=== PATIENT | female | born 1945 | race Caucasian/White ===

== ENCOUNTER 2020-12-05 17:37 | Emergency (ER) | payer BC, SELFPAY ==
--- NOTE | ~2020-12-05 | XR_ITS ---
EXAMINATION: XR ABDOMEN KUB CLINICAL INDICATION: Bloating. COMPARISON: None TECHNIQUE: AP view of the abdomen. FINDINGS: Nonspecific nondistended bowel loops are present. No evidence of any abnormal soft tissue mass or calcification. Visualized lung bases are clear. Atherosclerotic disease is present within the aorta and is branches. XR/XR KUB IMPRESSION: Nonspecific nondistended bowel loops are noted.
[2020-12-05 19:51] VITALS: BP 132/96; PULSE 90; RESP 16; TEMP 36.7; O2SAT 97; BMI 24.9
[2020-12-05 20:18] LABS: MANUAL DIFF FLAG NO
[2020-12-05 20:30] LABS: Basophils Absolute Auto 0.1 X10*3/uL (0.0-0.2); Basophils Percent Auto 0.5 % (0-2); Eosinophils Absolute Auto 0.2 X10*3/uL (0.0-0.4); Eosinophils Percent Auto 2.2 % (0-4); Hematocrit 38.3 % (37-47); Hemoglobin 12.8 g/dl (12.0-16.0); Imm Gran Abs Auto 0.03 X10*3/uL (0.00-0.03); Imm Gran Pct Auto 0.3 % (0.0-0.4); Lymphocytes Absolute Auto 2.9 X10*3/uL (1.2-4.9); Lymphocytes Percent Auto 31.3 % (20-40); Mean Corpuscular HGB Conc 33.4 g/dl (31.0-35.0); Mean Corpuscular Hemoglobin 29.6 pg (27.0-33.0); Mean Corpuscular Volume 88.7 fL (80-98); Mean Platelet Volume 10.5 fL (9.4-12.3); Monocytes Absolute Auto 0.8 X10*3/uL (0.1-1.2); Neutrophils Absolute Auto 5.2 X10*3/uL (2.0-8.3); Neutrophils Percent Auto 56.7 % (45-73); Platelet Count 273 X10*3/uL (160-400); Red Blood Count 4.32 X10*6/uL (4.20-5.50); Red Cell Distribution Width 12.5 % (11.0-16.0); White Blood Count 9.2 X10*3/uL (4.8-10.8)
[2020-12-05 20:40] LABS: Anion Gap 17 (12-20); Blood Urea Nitrogen 11 mg/dL (9-16); Carbon Dioxide 24 mmol/L (22-29); Chloride 100 mmol/L (96-108); Creatinine Clr Calc Pharmacy 51.9; Estimated Glomerular Filt Rate > 60; Glucose Random 102 mg/dL (60-115); Potassium 4.1 mmol/L (3.3-5.1); Sodium 137 mmol/L (135-145)
--- NOTE | 2020-12-05 22:28 | ED.NAVMDI ---
HPI - Nausea/Vomiting/Diarrhea General Chief complaint: Nausea/Vomiting/Diarrhea Stated complaint: not feeling good Source: patient Mode of arrival: ambulatory Limitations: no limitations History of Present Illness HPI Narrative: 75-year-old female with past medical history of hypertension, IBS with constipation presents with constipation and bloating for the past 2 weeks, and has had some nausea, fatigue, with pressure and pain in her lower back. She does feel like she has urinary tract infection, states that she has been able to pass gas and small amounts of stool. She has been taking omeprazole but has not been taking anything [id number] for the constipation. 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 MD elicited complaint: abdominal pain Onset (ago): week(s) (2) Associated nausea: No Associated abdominal pain: No Location of pain: diffuse Pain consistency: constant Severity: moderate Quality: cramping and aching Exacerbating factors: movement Relieving factors: none Associated symptoms: myalgias, malaise, nausea/vomiting and fatigue Related Data Previous Rx's Medication Instructions Recorded cefuroxime axetil 500 mg tablet 500 mg PO Q12H 7 Days #14 tab 12/06/20 magnesium citrate (Citrate of 296 ml PO ONCE #296 ml 12/06/20 Magnesia) Allergies Allergy/AdvReac Type Severity Reaction Status Date / Time acetaminophen [From PERCOCET] Allergy Intermediate RASH Verified 12/05/20 19:57 oxycodone [From PERCOCET] Allergy Intermediate RASH Verified 12/05/20 19:57 Review of Systems Review of Systems: Constitutional: Positive fatigue, No Fever, No Chills ENT/Mouth: No Ear Pain, No Hoarseness, No sore throat Eyes: No Eye Pain, No Swelling, No Redness, No Foreign Body Cardiovascular: No Chest Pain, No SOB Respiratory: No Cough, No Dyspnea Gastrointestinal: Positive constipation, No Nausea, No Vomiting, No Diarrhea, No abdominal Pain Genitourinary: No Dysuria, No Hematuria Musculoskeletal: positive lower back pain, No Myalgias, No Joint Swelling Skin: No Skin lacerations, No rash Neuro: No Weakness, No Numbness, No Paresthesias, No Loss of Consciousness, No Dizziness, No Headache Psych: No Anxiety/Panic, No Depression Heme/Lymph: no easy bruising, no Lymphadenopathy Endocrine: No Polyuria, No Polydipsia Yes all other systems are reviewed and are negative Gastrointestinal: Gastrointestinal: Denies nausea PMFSH Past Medical History Attestation statement: The following information was validated with the patient. Source: old records reviewed Medical History (Updated 12/06/20 @ 00:01 by Maya Givens NP) IBS (irritable bowel syndrome) Social History Social History Advance Directives: No Physical Exam Vital Signs: Vital Signs: Last Vital Signs Temp 98.7 F 12/05/20 23:35 Pulse 74 12/05/20 23:35 Resp 16 12/05/20 23:35 BP 141/73 H 12/05/20 23:35 Pulse Ox 98 12/05/20 23:35 Body Mass Index 24.9 Appearance: Alert. Oriented X3. No acute distress. Eyes: Pupils equal, round and reactive to light. ENT: Pharynx normal. Neck: Normal inspection. Neck supple. CVS: Normal heart rate and rhythm. Pulses normal. Respiratory: No respiratory distress. Breath sounds normal. Abdomen: Soft and nontender. No CVA or suprapubic tenderness noted. Skin: Skin warm and dry. Normal skin color. Normal skin turgor. Extremities: No lower extremity edema. Moves all extremities against resistance. Gait well balanced well coordinated. Neuro: No motor deficit. No sensory deficit. Cranial nerves 2-12 intact. Course Course Course Narrative: 75-year-old female presents with symptoms of constipation with lower back pain. Will order CBC, Chem 7, and urinalysis. KUB. Patient's abdominal exam is negative. KUB negative, urinalysis positive for UTI. Labs are unremarkable. 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 Will refer to Gastroenterology for history of IBS with constipation. Patient verbalized understanding of and agrees plan of care discharge home. MDM - Nausea/Vomiting/Diarrhea MDM Narrative Medical decision making narrative: IBS, constipation, UTI, obstruction Medical Records Attestation: I reviewed the patient's medical records. Lab Data Attestation: I reviewed the patient's lab results. Result diagrams: 12/05/20 20:13 12/05/20 20:13 Labs: Lab Results 12/05/20 12/05/20 12/05/20 Range/Units 20:13 20:13 23:45 WBC 9.2 (4.8-10.8) X10*3/uL RBC 4.32 (4.20-5.50) X10*6/uL Hgb 12.8 (12.0-16.0) g/dl Hct 38.3 (37-47) % MCV 88.7 (80-98) fL MCH 29.6 (27.0-33.0) pg MCHC 33.4 (31.0-35.0) g/dl RDW 12.5 (11.0-16.0) % Plt Count 273 (160-400) X10*3/uL MPV 10.5 (9.4-12.3) fL Immature Gran % (Auto) 0.3 (0.0-0.4) % Neut % (Auto) 56.7 (45-73) % Lymph % (Auto) 31.3 (20-40) % [place] % (Auto) 9.0 (2-11) % Eos % (Auto) 2.2 (0-4) % Baso % (Auto) 0.5 (0-2) % Lymph # (Auto) 2.9 (1.2-4.9) X10*3/uL [place] # (Auto) 0.8 (0.1-1.2) X10*3/uL Eos # (Auto) 0.2 (0.0-0.4) X10*3/uL Baso # (Auto) 0.1 (0.0-0.2) X10*3/uL Abs Immat Gran (auto) 0.03 (0.00-0.03) X10*3/uL Absolute Neuts (auto) 5.2 (2.0-8.3) X10*3/uL Absolute Nucleated RBC 0.000 (0.0-0.012) X10*3/uL Nucleated RBC % (auto) 0.0 (0.0-0.2) /100WBC Sodium 137 (135-145) mmol/L Potassium 4.1 (3.3-5.1) mmol/L Chloride 100 (96-108) mmol/L Carbon Dioxide 24 (22-29) mmol/L Anion Gap 17 (12-20) BUN 11 (9-16) mg/dL Creatinine 0.86 (0.5-1.4) mg/dL Estim Creat Clear Calc 51.9 Estimated GFR > 60 Random Glucose 102 (60-115) mg/dL Calcium 10.0 (8.4-10.2) mg/dL Urine Color STRAW Urine Appearance HAZY Urine pH 6.0 (5.0-8.0) Ur Specific Sarah 1.010 (1.005-1.025) Urine Protein NEG (NEG-TRACE) MG/DL Urine Glucose (UA) NEG (NEG) MG/DL Urine Ketones NEG (NEG) MG/DL Urine Blood TRACE (NEG) Urine Nitrite POS H (NEG) Ur Leukocyte Esterase 2+ H (NEG) Urine RBC 0 (0) /HPF Urine WBC 15-29 H (0-4) /HPF Ur Squamous Epith Cells 2+ /LPF Urine Bacteria 3+ /LPF Imaging Data KUB: Attestation: I personally reviewed and interpreted this imaging study as follows: Radiologist's impression: EXAMINATION: XR ABDOMEN KUB CLINICAL INDICATION: Bloating.? COMPARISON: None? TECHNIQUE: AP view of the abdomen. FINDINGS: Nonspecific nondistended bowel loops are present. No evidence of any abnormal soft tissue mass or calcification. Visualized lung bases are clear. Atherosclerotic disease is present within the aorta and is branches. XR/XR KUB IMPRESSION: Nonspecific nondistended bowel loops are noted. Discharge Plan Discharge Clinical Impression: Acute UTI Constipation Qualifiers: Constipation type: unspecified constipation type Qualified Code(s): K59.00 - Constipation, unspecified Patient Disposition: Home, Self-Care Instructions: Constipation (ED), Urinary Tract Infection in Women (ED) Additional Instructions: You were evaluated for constipation and pressure in your lower back. Your urinalysis is positive for UTI. Please take cefuroxime twice a day for the next 7 days. Drink plenty of fluids. KUB of the abdomen was normal, does show some moderate fecal load. Please purchase some magnesium citrate [id number] and drink the entire bottle. Please follow-up with Gastroenterology for IBS with constipation. I made a referral for you. Please call and request an appointment. Thank you for choosing this emergency department for evaluation. Please follow-up with primary care physician as needed. Return to the emergency department for any new, concerning, or worsening symptoms. Prescriptions: New cefuroxime axetil 500 mg tablet 500 mg PO Q12H 7 Days Qty: 14 RF: 0 magnesium citrate [Citrate of Magnesia] Solution 296 ml PO ONCE Qty: 296 RF: 0 Referrals: Lien Arnold MD [Physician] - 2 days (IBS with constipation) Interventions: ED Discharge Assessment Last Done: 12/06/20 00:34 Discharge Date/Time: 12/06/20 00:35
[2020-12-05 22:52] VITALS: BP 150/70; PULSE 69; RESP 16; O2SAT 98
[2020-12-05 23:35] VITALS: BP 141/73; PULSE 74; RESP 16; TEMP 37.1; O2SAT 98
[2020-12-05 23:51] LABS: Glucose Urine UA NEG (NEG); Leukocyte Esterase Urine 2+ (NEG); Nitrite Urine POS (NEG); Urine Blood TRACE (NEG); Urine Ketones NEG (NEG); Urine Protein NEG (NEG-TRACE)
[2020-12-05 23:52] LABS: Appearance Urine HAZY; Color Urine STRAW
[2020-12-06 00:12] LABS: Bacteria Urine 3+ /LPF; RBC Urine 0 /HPF (0); Squamous Epithelial Cell Urine 2+ /LPF
[2020-12-06] MEDS: Phenazopyridine HCL 200 MG TABLET PO (00:22)
== END 2020-12-06 00:35 | disposition home or self-care (01) ==
PROVIDERS: Emergency Provider Emergency Medicine; PCP Internal Medicine
DX: K59.00 Constipation, unspecified (principal); N39.0 Urinary tract infection, site not specified; I10 Essential (primary) hypertension
CPT/HCPCS: 36415; 74018; 80048; 81001; 85025; 87086; 87088; 87186; 99283; 99284

== ENCOUNTER 2020-12-16 10:14 | Outpatient (REF) | payer BC, SELFPAY ==
[2020-12-16 11:44] LABS: Glucose Urine UA NEG (NEG); Leukocyte Esterase Urine 1+ (NEG); Nitrite Urine NEG (NEG); Specific Gravity - Urine <= 1.005 (1.005-1.025); Urine Blood NEG (NEG); Urine Ketones NEG (NEG); Urine Protein NEG (NEG-TRACE)
[2020-12-16 11:54] LABS: Appearance Urine CLEAR; Color Urine STRAW
[2020-12-16 12:01] LABS: Bacteria Urine 4+ /LPF; RBC Urine 0-2 /HPF (0); Squamous Epithelial Cell Urine TRACE /LPF
== END 2020-12-16 10:15 | disposition home or self-care (01) ==
LOC: HO.LNP 10:14
PROVIDERS: Visit Provider Internal Medicine
DX: N30.00 Acute cystitis without hematuria (principal)
CPT/HCPCS: 81001; 87086; 87088; 87186

== ENCOUNTER 2021-01-02 10:47 | Outpatient (REF) | payer BC, SELFPAY ==
[2021-01-02 11:08] LABS: Glucose Urine UA NEG (NEG); Leukocyte Esterase Urine 2+ (NEG); Nitrite Urine NEG (NEG); Specific Gravity - Urine <= 1.005 (1.005-1.025); Urine Blood TRACE (NEG); Urine Ketones NEG (NEG); Urine Protein NEG (NEG-TRACE)
[2021-01-02 11:12] LABS: Appearance Urine HAZY; Color Urine YELLOW
[2021-01-02 11:16] LABS: Bacteria Urine 1+ /LPF; Squamous Epithelial Cell Urine 2+ /LPF; WBC Clumps Urine NOTED
== END 2021-01-02 10:48 | disposition home or self-care (01) ==
LOC: HO.LNP 10:47
PROVIDERS: Visit Provider Internal Medicine
DX: N30.00 Acute cystitis without hematuria (principal)
CPT/HCPCS: 81001; 81003; 87086; 87088; 87186

== ENCOUNTER 2021-02-19 10:56 | Outpatient (REF) | payer BC, SELFPAY ==
[2021-02-19 10:58] LABS: MANUAL DIFF FLAG NO
[2021-02-19 11:42] LABS: Basophils Absolute Auto 0.1 X10*3/uL (0.0-0.2); Basophils Percent Auto 0.6 % (0-2); Eosinophils Absolute Auto 0.2 X10*3/uL (0.0-0.4); Eosinophils Percent Auto 1.9 % (0-4); Hematocrit 39.6 % (37-47); Hemoglobin 12.7 g/dl (12.0-16.0); Imm Gran Abs Auto 0.03 X10*3/uL (0.00-0.03); Imm Gran Pct Auto 0.4 % (0.0-0.4); Lymphocytes Absolute Auto 2.7 X10*3/uL (1.2-4.9); Lymphocytes Percent Auto 32.8 % (20-40); Mean Corpuscular HGB Conc 32.1 g/dl (31.0-35.0); Mean Corpuscular Hemoglobin 29.2 pg (27.0-33.0); Mean Platelet Volume 11.6 fL (9.4-12.3); Monocytes Absolute Auto 0.8 X10*3/uL (0.1-1.2); Neutrophils Absolute Auto 4.5 X10*3/uL (2.0-8.3); Neutrophils Percent Auto 54.3 % (45-73); Platelet Count 253 X10*3/uL (160-400); Red Blood Count 4.35 X10*6/uL (4.20-5.50); Red Cell Distribution Width 13.1 % (11.0-16.0); White Blood Count 8.3 X10*3/uL (4.8-10.8)
[2021-02-19 11:53] LABS: Appearance Urine HAZY; Color Urine YELLOW; Glucose Urine UA NEG (NEG); Leukocyte Esterase Urine TRACE (NEG); Nitrite Urine POS (NEG); Urine Blood NEG (NEG); Urine Ketones NEG (NEG); Urine Protein NEG (NEG-TRACE)
[2021-02-19 12:06] LABS: Bacteria Urine 3+ /LPF; RBC Urine 0 /HPF (0); Squamous Epithelial Cell Urine 2+ /LPF
[2021-02-19 12:07] LABS: Mucus Urine 1+ /LPF
[2021-02-19 12:12] LABS: Alanine Aminotransferase 15 U/L (0-31); Albumin Level 4.9 g/dL (3.5-5.0); Alkaline Phosphatase 94 U/L (39-117); Anion Gap 14 (12-20); Aspartate Amino Transferase 21 U/L (5-31); Bilirubin Total 0.5 mg/dL (0.0-1.0); Blood Urea Nitrogen 15 mg/dL (9-16); Calcium 10.5 mg/dL (8.4-10.2); Carbon Dioxide 28 mmol/L (22-29); Chloride 104 mmol/L (96-108); Cholesterol 250 mg/dL; Estimated Glomerular Filt Rate 56; Glucose Fasting 104 mg/dL (60-99); HDL Cholesterol 57 mg/dL; LDL Cholesterol Calculated 144 mg/dl; Potassium 4.3 mmol/L (3.3-5.1); Sodium 142 mmol/L (135-145); Total Protein 7.7 g/dL (6.5-8.0); Triglycerides 248 mg/dL
[2021-02-19 12:17] LABS: Reflex LDLD? No
== END 2021-02-19 10:57 | disposition home or self-care (01) ==
LOC: HO.LNP 10:56
PROVIDERS: PCP Internal Medicine; Visit Provider Internal Medicine
DX: I10 Essential (primary) hypertension (principal); E78.00 Pure hypercholesterolemia, unspecified
CPT/HCPCS: 80053; 80061; 81001; 81003; 85025

== ENCOUNTER 2021-02-24 15:29 | Outpatient (REF) | payer BC, SELFPAY ==
[2021-02-24 15:41] LABS: Calcium 9.7 mg/dL (8.4-10.2)
== END 2021-02-24 15:30 | disposition home or self-care (01) ==
LOC: HO.LNP 15:29
PROVIDERS: Visit Provider Internal Medicine
DX: E83.52 Hypercalcemia (principal)
CPT/HCPCS: 82310

== ENCOUNTER 2021-04-14 09:37 | Day surgery (SDC) | payer BC, SELFPAY ==
--- NOTE | 2021-04-13 09:27 | P.CONAN_ITS ---
Documented by User: Ludmila Sahu NP 04/13/21 09:31 HPI - Anesthesia Eval Consult details Narrative: 76yo F for Colonoscopy [facility] Past Medical History Medical History GERD (gastroesophageal reflux disease) HLD (hyperlipidemia) HTN (hypertension) IBS (irritable bowel syndrome) Surgical History Surgical History (Updated 04/14/21 @ 11:07 by Ofelia Muniz MD) H/O cataract removal with insertion of prosthetic lens H/O colonoscopy History of hysterectomy Hx of right knee surgery Status post breast reduction Social History Social History Patient Tobacco Use Status: Never used Tobacco Use of substances other than those prescribed or required for medical reasons: No Are you DNR?: No Advance Directives: No Advance Directives Information Provided: Yes Meds Allergies Allergy/AdvReac Type Severity Reaction Status Date / Time acetaminophen [From PERCOCET] Allergy Intermediate RASH Verified 12/05/20 19:57 oxycodone [From PERCOCET] Allergy Intermediate RASH Verified 12/05/20 19:57 Exam Exam Date and Time: April 13, 2021 09 Pertinent Lab Results Pertinent Lab Results: Laboratory Tests 02/19/21 02/19/21 07:25 07:25 WBC 8.3 Hgb 12.7 Hct 39.6 Plt Count 253 Sodium 142 Potassium 4.3 Chloride 104 Carbon Dioxide 28 BUN 15 Creatinine 0.96 Assessment and Plan Assessment Anesthesia Assessment: Chart Reviewed Documented by User: Ofelia Muniz MD 04/14/21 11:09 [facility] Past Medical History Medical History GERD (gastroesophageal reflux disease) HLD (hyperlipidemia) HTN (hypertension) IBS (irritable bowel syndrome) Family History Family history of problems with anesthesia: No Surgical History Surgical History (Updated 04/14/21 @ 11:07 by Ofelia Muniz MD) H/O cataract removal with insertion of prosthetic lens H/O colonoscopy History of hysterectomy Hx of right knee surgery Status post breast reduction History of Problems with Anesthesia: No Social History Social History Patient Tobacco Use Status: Never used Tobacco Use of substances other than those prescribed or required for medical reasons: No Are you DNR?: No Advance Directives: No Advance Directives Information Provided: Yes Meds Allergies Allergy/AdvReac Type Severity Reaction Status Date / Time acetaminophen [From PERCOCET] Allergy Intermediate RASH Verified 12/05/20 19:57 oxycodone [From PERCOCET] Allergy Intermediate RASH Verified 12/05/20 19:57 Exam Height,Weight and Vital Signs: Height 5 ft 3 in Weight 68.039 kg Vital Signs Temp Pulse Resp BP Pulse Ox 04/14/21 10:32 98.8 F 92 18 145/74 H 97 Airway Mallampati Class: II TM Dist: >3cm Neck ROM: Full Loose/Missing/Broken Teeth: No Heart: RRR Lungs: CTAB Assessment and Plan Assessment Anesthesia Assessment: Anesthesia Plan Discussed Final Anesthetic Review Family History of Problems with Anesthesia: No History of Problems with Anesthesia: No NPO: Yes ASA Class: II Final Preanesthetic Review: No Changes in Pt Med Stat, Meds/Allgs Chart Reviewed, Consent Obtained/Reviewed and Anes Risks/Benef Reviewed Patient Risk: Low Procedure Risk: Low Assessment/Block/Sedation in SS: Assess/Block/Sedation-SS Anesthetic Plan Anesthetic Plan: MAC: Disposition: Standard PACU
[2021-04-14 10:13] VITALS: BMI 26.5
[2021-04-14 10:32] VITALS: BP 145/74; PULSE 92; RESP 18; TEMP 37.1; O2SAT 97
[2021-04-14] MEDS: Lactated Ringers 1,000 ML 100 ML IVCONT (10:47)
--- NOTE | 2021-04-14 11:31 | MHC.SHP ---
Pre-Procedural Eval Section A Date of Service: 04/14/21 The patient is an INPATIENT: No Changes since office visit: No Cold of Flu in the past 2 weeks, No New Medical Problems, No Changes in Medication and No Patient answered all questions The History & Physical has been completed within 30 days and I have reviewed it.: Yes Section B Chief Complaint: screening Allergies: Allergies Allergy/AdvReac Type Severity Reaction Status Date / Time acetaminophen [From PERCOCET] Allergy Intermediate RASH Verified 12/05/20 19:57 oxycodone [From PERCOCET] Allergy Intermediate RASH Verified 12/05/20 19:57 Plan I have reviewed the history and physical and performed a pertinent physical examination on my patient. No changes have occurred unless specified.
--- NOTE | 2021-04-14 12:16 | PM.OP ---
Brief Operative Note Date of Service: 04/14/21 Pre-op diagnosis: screening Post-op diagnosis: same (colon polyp) Procedure: colonoscopy Surgeon: Chapin Sloan Anesthesia: MAC Was an Industrial Cafeteria Manager used for this Procedure?: No Estimated blood loss (mL): 2 Pathology: other (polyp ceum) Condition: stable Disposition: PACU
[2021-04-14 12:17] VITALS: BP 85/50; PULSE 70; RESP 16; TEMP 36.4; O2SAT 97
[2021-04-14 12:32] VITALS: BP 117/63; PULSE 70; RESP 16; TEMP 36.4; O2SAT 100
--- NOTE | 2021-04-14 12:46 | OP_ITS ---
SURGEON: Chapin Sloan MD INDICATIONS: Colon cancer screening. PREOPERATIVE DIAGNOSIS: POSTOPERATIVE DIAGNOSIS: PROCEDURE PERFORMED: Colonoscopy to the terminal ileum with biopsy. ESTIMATED BLOOD LOSS: COMPLICATIONS: ANESTHESIA: ASSISTANTS: SPECIMENS: MEDICATIONS: Monitored anesthesia care. DESCRIPTION OF PROCEDURE: History and physical performed. The risks and benefits of the procedure were explained to the patient. Informed consent was obtained. The patient was placed in the left lateral decubitus position. A digital rectal exam was performed and showed decreased sphincter tone. The Olympus pediatric video colonoscope was introduced into the rectum and advanced to the cecum without difficulty. The cecum was identified by transillumination, palpation, and identification of the ileocecal valve. Examination was performed and the scope was removed. She tolerated the procedure well and was taken to recovery area in stable condition. FINDINGS: The terminal ileum was normal. The visualized colonic mucosa was normal. There was some liquid stool coating the mucosa limiting the examination in the cecum and sigmoid. This was washed and suctioned. In the cecum, was a less than 5 mm polyp, which was removed with biopsy forceps. No other polyps were identified. There was moderate sigmoid diverticulosis with scattered diverticula throughout the remainder of the colon. Retroflexed examination was normal. IMPRESSION: Colon polyp. RECOMMENDATION: Follow up the biopsy results. MD ANDREI Lawrence/ALETA / [id number]
== END 2021-04-14 13:20 | disposition home or self-care (01) ==
PROVIDERS: PCP Internal Medicine; Visit Provider Internal Medicine Gastroenterology
PROC: 0DJD8ZZ Inspection of Lower Intestinal Tract, Via Natural or Artificial Opening Endoscopic (ICD-10-PCS; CPT 45378; principal; 2021-04-14 10:30)
DX: Z12.11 Encounter for screening for malignant neoplasm of colon (principal); K63.5 Polyp of colon; K57.30 Diverticulosis of large intestine without perforation or abscess without bleeding; K21.9 Gastro-esophageal reflux disease without esophagitis; K58.1 Irritable bowel syndrome with constipation; I10 Essential (primary) hypertension; E78.00 Pure hypercholesterolemia, unspecified; Z79.899 Other long term (current) drug therapy; Z88.8 Allergy status to other drugs, medicaments and biological substances
CPT/HCPCS: 45380; 88305

== ENCOUNTER 2021-09-03 11:14 | Outpatient (REF) | payer BC, SELFPAY ==
[2021-09-03 11:46] LABS: Alanine Aminotransferase 17 U/L (0-31); Albumin Level 4.6 g/dL (3.5-5.0); Alkaline Phosphatase 111 U/L (39-117); Aspartate Amino Transferase 21 U/L (5-31); Bilirubin Direct 0.2 mg/dL (0.0-0.5); Bilirubin Total 0.6 mg/dL (0.0-1.0); Cholesterol 233 mg/dL; HDL Cholesterol 55 mg/dL; LDL Cholesterol Calculated 144 mg/dl; Total Protein 7.7 g/dL (6.5-8.0); Triglycerides 172 mg/dL
[2021-09-03 13:59] LABS: Reflex LDLD? No
== END 2021-09-03 11:15 | disposition home or self-care (01) ==
LOC: HO.LNP 11:14
PROVIDERS: PCP Internal Medicine; Visit Provider Internal Medicine
DX: E78.00 Pure hypercholesterolemia, unspecified (principal)
CPT/HCPCS: 80061; 80076

== ENCOUNTER 2022-09-02 11:59 | Emergency (ER) | payer MEDICARE, OTHER, SELFPAY ==
--- NOTE | ~2022-09-02 | XR_ITS ---
EXAMINATION: XR CHEST CLINICAL INFORMATION: Chest pain and palpitations COMPARISON: None available. TECHNIQUE: Frontal view of the chest was obtained. FINDINGS: Lungs clear. Heart and pulmonary vessels are normal. Bony structures intact. XR/XR chest 1V IMPRESSION: No active disease.
--- NOTE | 2022-09-02 12:02 | ECG_ITS ---
Test Reason : CP/DIZZY Blood Pressure : / mmHG Vent. Rate : 081 BPM Atrial Rate : 081 BPM P-R Int : 170 ms QRS Dur : 078 ms QT Int : 354 ms P-R-T Axes : 058 000 053 degrees QTc Int : 411 ms Normal sinus rhythm Cannot rule out Anterior infarct , age undetermined Abnormal ECG No previous ECGs available Referred By: Generic ED Physician Electronically Signed By:SHONA FORBES MD
--- NOTE | 2022-09-02 12:03 | ED.GENADULT ---
HPI - General Adult General Chief complaint: Chest Pain <JARRETT Mejia Last Filed: 09/02/22 12:15> Stated complaint: heart issues <JARRETT Mejia - Last Filed: 09/02/22 12:15> Time Seen by Provider: 09/02/22 17:31 <JARRETT Mejia - Last Filed: 09/02/22 12:15> Source: patient <DO Fely Choi Last Filed: 09/02/22 17:40> Mode of arrival: ambulatory <DO Fely Choi Last Filed: 09/02/22 17:40> Limitations: no limitations <DO Fely Choi Last Filed: 09/02/22 17:40> History of Present Illness HPI narrative: 69-year-old female presents emergency department after feeling off for the past few days. She states that she went to visit somebody at a long-term it is very hot in the room she felt lightheaded had to sit down for 15 minutes before she was not get out. She also admits to losing 20 lb since having COVID in May. She denies any chest pain but has had a palpitation few days ago she denies ever having heart attack or stroke she does take medications for blood pressure and cholesterol. She denies any falls or injuries denies nausea vomiting or diarrhea. <Juliano Brody DO - Last Filed: 09/02/22 17:40> Onset (ago): week(s) <DO Fely Choi Last Filed: 09/02/22 17:40> Related Data Home medications: Home Medications Medication Instructions Recorded Confirmed albuterol sulfate 2.5 mg/3 mL 2.5 mg inhalation Q4-6H PRN 04/14/21 04/14/21 (0.083 %) solution for nebulization Shortness Of Breath amlodipine 10 mg tablet 10 mg PO DAILY 04/14/21 04/14/21 aspirin 81 mg tablet 81 mg PO DAILY 04/14/21 04/14/21 atorvastatin 40 mg tablet 40 mg PO DAILY 04/14/21 04/14/21 benazepril 40 mg tablet 40 mg PO DAILY 04/14/21 04/14/21 hydrochlorothiazide 25 mg tablet 25 mg PO DAILY 04/14/21 04/14/21 omeprazole 40 mg capsule,delayed 40 mg PO DAILY 04/14/21 04/14/21 release <JARRETT Mejia - Last Filed: 09/02/22 12:15> Allergies/adverse reactions: Allergies Allergy/AdvReac Type Severity Reaction Status Date / Time oxycodone [From PERCOCET] Allergy Intermediate RASH Verified 09/02/22 12:13 <JARRETT Mejia - Last Filed: 09/02/22 12:15> Review of Systems Review of Systems: Review of systems: General: Patient denies any fever chills recent illness or falls Musculoskeletal: Denies back pain or body aches or other injuries HEENT: denies headache, runny nose, ear pain Respiratory: denies shortness of breath, cough Cardiovascular: no chest pain or palpitations : denies dysuria, frequency Abdomen: no nausea vomiting denies abdominal pain Extremities: no swelling, no pain Skin: no diaphoresis <Juliano Brody DO - Last Filed: 09/02/22 17:40> Yes all other systems are reviewed and are negative <Juliano Brody DO - Last Filed: 09/02/22 17:40> [facility] Past Medical History Medical History: Medical History (Updated 09/02/22 @ 17:40 by Juliano Brody DO) GERD (gastroesophageal reflux disease) HLD (hyperlipidemia) HTN (hypertension) IBS (irritable bowel syndrome) <JARRETT Mejia - Last Filed: 09/02/22 12:15> Surgical History: Surgical History (Updated 04/14/21 @ 11:07 by Ofelia Muniz MD) H/O cataract removal with insertion of prosthetic lens H/O colonoscopy History of hysterectomy Hx of right knee surgery Status post breast reduction <JARRETT Mejia - Last Filed: 09/02/22 12:15> Social History Social History: Social History Patient Tobacco Use Status: Never used Tobacco Advance Directives: No <JARRETT Mejia Last Filed: 09/02/22 12:15> Physical Exam ED Vital Signs: Vital Signs - 24 hr 09/02/22 12:13 Temperature 98.2 F Pulse Rate 86 Respiratory Rate 16 Blood Pressure 148/61 H Pulse Oximetry 99 Oxygen Delivery Method Room Air BMI result Body Mass Index 24.8 <JARRETT Mejia Last Filed: 09/02/22 12:15> Vital Signs - 24 hr 09/02/22 12:13 Temperature 98.2 F Pulse Rate 86 Respiratory Rate 16 Blood Pressure 148/61 H Pulse Oximetry 99 Oxygen Delivery Method Room Air BMI result Body Mass Index 24.8 <DO Fely Choi Last Filed: 09/02/22 17:40> General: Well-appearing well-nourished in no signs of distress HEENT: Normocephalic atraumatic Neck: No signs of JVD, no masses no tenderness or lymphadenopathy Cardiovascular: Regular rate and rhythm Respiratory: Clear to auscultation bilaterally Abdomen: Soft nontender no masses Extremities: Normal pedal pulses no signs of edema Skin: Dry warm no rashes Back: No tenderness full ROM <DO Fely Choi Last Filed: 09/02/22 17:40> Course Course Course Narrative: 77 year old female with PMH of HTN, hyperlipidemia and CVD presents to the ED with CP, multiple near-syncopal episodes, SOB and palpitations since Tuesday. Patient reports symptoms are resolved currently. Patient denies radiation, no history of clots. No recent travel. Patient is on aspirin daily, no other blood thinners. Patient appears anxious. PE: Benign Plan: Basic labs, EKG, <JARRETT Mejia Last Filed: 09/02/22 12:15> Medical Decision Making Medical Decision Making MDM Narrative: Patient with near-syncope few days ago since then has felt off she also admits to decreased appetite. Patient was seen in triage and labs sent which are all normal I do not think the patient needs an admission she is alert oriented and was reassured went over the lab results. <DO Fely Choi Last Filed: 09/02/22 17:40> Differential Diagnosis Differential Diagnoses: The differential diagnosis associated with the presentation includes <DO Fely Choi Last Filed: 09/02/22 17:40> Weakness dehydration electrolyte abnormality hypokalemia hypomagnesemia <DO Fely Choi Last Filed: 09/02/22 17:40> Lab Data Result Diagrams: 09/02/22 12:11 09/02/22 12:11 <JARRETT Mejia - Last Filed: 09/02/22 12:15> Labs: Lab Results 09/02/22 09/02/22 09/02/22 Range/Units 12:11 12:11 12:11 WBC 8.1 (4.8-10.8) X10*3/uL RBC 4.39 (4.20-5.50) X10*6/uL Hgb 12.5 (12.0-16.0) g/dl Hct 38.4 (37.0-47.0) % MCV 87.5 (80.0-98.0) fL MCH 28.5 (27.0-33.0) pg MCHC 32.6 (31.0-35.0) g/dl RDW 14.0 (11.0-16.0) % Plt Count 239 (160-400) X10*3/uL MPV 11.1 (9.4-12.3) fL Immature Gran % (Auto) 0.4 (0.0-0.4) % Neut % (Auto) 61.5 (45-73) % Lymph % (Auto) 24.6 (20-40) % [place] % (Auto) 9.6 (2-11) % Eos % (Auto) 3.3 (0-4) % Baso % (Auto) 0.6 (0-2) % Lymph # (Auto) 2.0 (1.2-4.9) X10*3/uL [place] # (Auto) 0.8 (0.1-1.2) X10*3/uL Eos # (Auto) 0.3 (0.0-0.4) X10*3/uL Baso # (Auto) 0.1 (0.0-0.2) X10*3/uL Abs Immat Gran (auto) 0.03 (0.00-0.03) X10*3/uL Absolute Neuts (auto) 5.0 (2.0-8.3) x10*3/uL Absolute Nucleated RBC 0.000 (0.0-0.012) X10*3/uL Nucleated RBC % (auto) 0.0 (0.0-0.2) /100WBC D-Dimer High Sensitivty NG/ML Sodium 141 (135-145) mmol/L Potassium 4.0 (3.3-5.1) mmol/L Chloride 104 (96-108) mmol/L Carbon Dioxide 27 (22-29) mmol/L Anion Gap 14 (12-20) BUN 16 (9-16) mg/dL Creatinine 0.86 (0.5-1.4) mg/dL Estim Creat Clear Calc 48.4 Estimated GFR > 60 Random Glucose 107 (60-115) mg/dL Calcium 9.7 (8.4-10.2) mg/dL Magnesium 2.2 (1.6-2.6) mg/dL Total Bilirubin 0.4 (0.0-1.0) mg/dL AST 28 (5-31) U/L ALT 16 (0-31) U/L Alkaline Phosphatase 124 H (39-117) U/L Troponin I High Sens < 2.7 (<3.5-17.0) ng/L B-Natriuretic Peptide (<100) pg/mL Total Protein 7.3 (6.5-8.0) g/dL Albumin 4.4 (3.5-5.0) g/dL 09/02/22 09/02/22 Range/Units 12:11 12:11 WBC (4.8-10.8) X10*3/uL RBC (4.20-5.50) X10*6/uL Hgb (12.0-16.0) g/dl Hct (37.0-47.0) % MCV (80.0-98.0) fL MCH (27.0-33.0) pg MCHC (31.0-35.0) g/dl RDW (11.0-16.0) % Plt Count (160-400) X10*3/uL MPV (9.4-12.3) fL Immature Gran % (Auto) (0.0-0.4) % Neut % (Auto) (45-73) % Lymph % (Auto) (20-40) % Doddridge % (Auto) (2-11) % Eos % (Auto) (0-4) % Baso % (Auto) (0-2) % Lymph # (Auto) (1.2-4.9) X10*3/uL [place] # (Auto) (0.1-1.2) X10*3/uL Eos # (Auto) (0.0-0.4) X10*3/uL Baso # (Auto) (0.0-0.2) X10*3/uL Abs Immat Gran (auto) (0.00-0.03) X10*3/uL Absolute Neuts (auto) (2.0-8.3) x10*3/uL Absolute Nucleated RBC (0.0-0.012) X10*3/uL Nucleated RBC % (auto) (0.0-0.2) /100WBC D-Dimer High Sensitivty < 150 NG/ML Sodium (135-145) mmol/L Potassium (3.3-5.1) mmol/L Chloride (96-108) mmol/L Carbon Dioxide (22-29) mmol/L Anion Gap (12-20) BUN (9-16) mg/dL Creatinine (0.5-1.4) mg/dL Estim Creat Clear Calc Estimated GFR Random Glucose (60-115) mg/dL Calcium (8.4-10.2) mg/dL Magnesium (1.6-2.6) mg/dL Total Bilirubin (0.0-1.0) mg/dL AST (5-31) U/L ALT (0-31) U/L Alkaline Phosphatase (39-117) U/L Troponin I High Sens (<3.5-17.0) ng/L B-Natriuretic Peptide 43 (<100) pg/mL Total Protein (6.5-8.0) g/dL Albumin (3.5-5.0) g/dL <JARRETT Mejia - Last Filed: 09/02/22 12:15> Lab Results 09/02/22 09/02/22 09/02/22 Range/Units 12:11 12:11 12:11 WBC 8.1 (4.8-10.8) X10*3/uL RBC 4.39 (4.20-5.50) X10*6/uL Hgb 12.5 (12.0-16.0) g/dl Hct 38.4 (37.0-47.0) % MCV 87.5 (80.0-98.0) fL MCH 28.5 (27.0-33.0) pg MCHC 32.6 (31.0-35.0) g/dl RDW 14.0 (11.0-16.0) % Plt Count 239 (160-400) X10*3/uL MPV 11.1 (9.4-12.3) fL Immature Gran % (Auto) 0.4 (0.0-0.4) % Neut % (Auto) 61.5 (45-73) % Lymph % (Auto) 24.6 (20-40) % Dod[place] % (Auto) 9.6 (2-11) % Eos % (Auto) 3.3 (0-4) % Baso % (Auto) 0.6 (0-2) % Lymph # (Auto) 2.0 (1.2-4.9) X10*3/uL [place] # (Auto) 0.8 (0.1-1.2) X10*3/uL Eos # (Auto) 0.3 (0.0-0.4) X10*3/uL Baso # (Auto) 0.1 (0.0-0.2) X10*3/uL Abs Immat Gran (auto) 0.03 (0.00-0.03) X10*3/uL Absolute Neuts (auto) 5.0 (2.0-8.3) x10*3/uL Absolute Nucleated RBC 0.000 (0.0-0.012) X10*3/uL Nucleated RBC % (auto) 0.0 (0.0-0.2) /100WBC D-Dimer High Sensitivty NG/ML Sodium 141 (135-145) mmol/L Potassium 4.0 (3.3-5.1) mmol/L Chloride 104 (96-108) mmol/L Carbon Dioxide 27 (22-29) mmol/L Anion Gap 14 (12-20) BUN 16 (9-16) mg/dL Creatinine 0.86 (0.5-1.4) mg/dL Estim Creat Clear Calc 48.4 Estimated GFR > 60 Random Glucose 107 (60-115) mg/dL Calcium 9.7 (8.4-10.2) mg/dL Magnesium 2.2 (1.6-2.6) mg/dL Total Bilirubin 0.4 (0.0-1.0) mg/dL AST 28 (5-31) U/L ALT 16 (0-31) U/L Alkaline Phosphatase 124 H (39-117) U/L Troponin I High Sens < 2.7 (<3.5-17.0) ng/L B-Natriuretic Peptide (<100) pg/mL Total Protein 7.3 (6.5-8.0) g/dL Albumin 4.4 (3.5-5.0) g/dL 09/02/22 09/02/22 Range/Units 12:11 12:11 WBC (4.8-10.8) X10*3/uL RBC (4.20-5.50) X10*6/uL Hgb (12.0-16.0) g/dl Hct (37.0-47.0) % MCV (80.0-98.0) fL MCH (27.0-33.0) pg MCHC (31.0-35.0) g/dl RDW (11.0-16.0) % Plt Count (160-400) X10*3/uL MPV (9.4-12.3) fL Immature Gran % (Auto) (0.0-0.4) % Neut % (Auto) (45-73) % Lymph % (Auto) (20-40) % Dod[place] % (Auto) (2-11) % Eos % (Auto) (0-4) % Baso % (Auto) (0-2) % Lymph # (Auto) (1.2-4.9) X10*3/uL [place] # (Auto) (0.1-1.2) X10*3/uL Eos # (Auto) (0.0-0.4) X10*3/uL Baso # (Auto) (0.0-0.2) X10*3/uL Abs Immat Gran (auto) (0.00-0.03) X10*3/uL Absolute Neuts (auto) (2.0-8.3) x10*3/uL Absolute Nucleated RBC (0.0-0.012) X10*3/uL Nucleated RBC % (auto) (0.0-0.2) /100WBC D-Dimer High Sensitivty < 150 NG/ML Sodium (135-145) mmol/L Potassium (3.3-5.1) mmol/L Chloride (96-108) mmol/L Carbon Dioxide (22-29) mmol/L Anion Gap (12-20) BUN (9-16) mg/dL Creatinine (0.5-1.4) mg/dL Estim Creat Clear Calc Estimated GFR Random Glucose (60-115) mg/dL Calcium (8.4-10.2) mg/dL Magnesium (1.6-2.6) mg/dL Total Bilirubin (0.0-1.0) mg/dL AST (5-31) U/L ALT (0-31) U/L Alkaline Phosphatase (39-117) U/L Troponin I High Sens (<3.5-17.0) ng/L B-Natriuretic Peptide 43 (<100) pg/mL Total Protein (6.5-8.0) g/dL Albumin (3.5-5.0) g/dL <Juliano Brody DO - Last Filed: 09/02/22 17:40> Discharge Plan Discharge Clinical Impression: Near syncope <JARRETT Mejia - Last Filed: 09/02/22 12:15> Patient Disposition: Home, Self-Care <JARRETT Mejia - Last Filed: 09/02/22 12:15> Instructions: Near Syncope (ED) <JARRETT Mejia - Last Filed: 09/02/22 12:15> Additional Instructions: Your seen in the emergency department today by Dr. Brody. You had x-ray and labs which were all unremarkable we have been sent off labs make sure this was not a heart attack. Please call follow-up with her doctor if you have any other concerns please do not hesitate to come back to the emergency department. <JARRETT Mejia - Last Filed: 09/02/22 12:15> Prescriptions: No Action atorvastatin 40 mg Tablet 40 mg PO DAILY albuterol sulfate 2.5 mg /3 mL (0.083 %) Solution For Nebulization 2.5 mg INHALATION Q4-6H PRN (Reason: Shortness Of Breath) omeprazole 40 mg Capsule,Delayed Release(Dr/Ec) 40 mg PO DAILY amlodipine 10 mg Tablet 10 mg PO DAILY aspirin 81 mg Tablet 81 mg PO DAILY hydrochlorothiazide 25 mg Tablet 25 mg PO DAILY benazepril 40 mg Tablet 40 mg PO DAILY <JARRETT Mejia - Last Filed: 09/02/22 12:15>
[2022-09-02 12:13] VITALS: BP 148/61; PULSE 86; RESP 16; TEMP 36.8; O2SAT 99; BMI 24.8
[2022-09-02 12:18] LABS: Basophils Absolute Auto 0.1 X10*3/uL (0.0-0.2); Basophils Percent Auto 0.6 % (0-2); Eosinophils Absolute Auto 0.3 X10*3/uL (0.0-0.4); Eosinophils Percent Auto 3.3 % (0-4); Hematocrit 38.4 % (37.0-47.0); Hemoglobin 12.5 g/dl (12.0-16.0); Imm Gran Abs Auto 0.03 X10*3/uL (0.00-0.03); Imm Gran Pct Auto 0.4 % (0.0-0.4); Lymphocytes Percent Auto 24.6 % (20-40); MANUAL DIFF FLAG NO; Mean Corpuscular HGB Conc 32.6 g/dl (31.0-35.0); Mean Corpuscular Hemoglobin 28.5 pg (27.0-33.0); Mean Corpuscular Volume 87.5 fL (80.0-98.0); Mean Platelet Volume 11.1 fL (9.4-12.3); Monocytes Absolute Auto 0.8 X10*3/uL (0.1-1.2); Monocytes Percent Auto 9.6 % (2-11); Neutrophils Percent Auto 61.5 % (45-73); Platelet Count 239 X10*3/uL (160-400); Red Blood Count 4.39 X10*6/uL (4.20-5.50); White Blood Count 8.1 X10*3/uL (4.8-10.8)
--- OUTSIDE RECORDS SUMMARY | 2022-09-02 12:19 | XMS_ITS | Continuity of Care Document ---
Author Name Unknown Organization [facility] Contreras Mojica Amanuel lt Address [address] [place] [address]- Care Team Providers Care [employer] Stewardess Name Role Phone Dale Garzon MD Primary Care Physician Encounter [facility] Date(s): 07/23/22 - 07/30/22 [facility] Contreras Mojica Adult [address] [place] [address]- Encounter Diagnosis Allergic rhinitis(Discharge Diagnosis) - 07/23/22 Asthma, mild intermittent(Discharge Diagnosis) - 07/23/22 Esophageal reflux(Discharge Diagnosis) - 07/23/22 Glucose intolerance (pre-diabetes)(Discharge Diagnosis) - 07/23/22 HTN (hypertension)(Discharge Diagnosis) - 07/23/22 Hypercholesterolemia(Discharge Diagnosis) - 07/23/22 Cerebrovascular disease(Discharge Diagnosis) - 07/23/22 Attending Physician: Dale Garzon MD Allergies, Adverse Reactions, Alerts Substance Reaction Severity Status hydrocodone Active Percocet Active Immunizations Given and Recorded Vaccine Date Status Refusal Reason [id number] 12y+ bivalent booster vax 07/23/22 Given influenza virus vaccine, inactivated 12/28/21 Taco rded influenza virus vaccine, inactivated 01/03/21 Taco rded influenza virus vaccine, inactivated 01/14/20 Taco rded influenza virus vaccine, inactivated 12/17/19 Taco rded influenza virus vaccine, inactivated 01/18/18 Taco rded influenza virus vaccine, inactivated 1 01/17/17 Re corded influenza virus vaccine, inactivated 01/02/16 Taco rded influenza virus vaccine, inactivated 2, 3 12/31/15 Recorded influenza virus vaccine, inactivated 4 01/22/15 Re corded influenza virus vaccine, inactivated 01/19/14 Taco rded influenza virus vaccine, inactivated 01/13/14 Taco rded influenza virus vaccine, inactivated 5 01/11/13 Gi thomas influenza virus vaccine, inactivated 01/10/13 Taco rded influenza virus vaccine, inactivated 01/19/11 Give n influenza virus vaccine, inactivated 02/22/08 Give n SARS-CoV-2 mRNA ([id number]) vax 08/11/21 Recorded pneumococcal 23-valent vaccine 02/26/21 Recorded pneumococcal 23-valent vaccine 09/14/19 Recorded SARS-CoV-2 (COVID-19) mRNA BNT-162b2 vac 01/23/21 Recorded SARS-CoV-2 (COVID-19) mRNA BNT-162b2 vac 06/21/20 Recorded SARS-CoV-2 (COVID-19) mRNA BNT-162b2 vac 05/30/20 Recorded zoster vaccine, inactivated 04/16/20 Recorded zoster vaccine, inactivated 01/18/20 Recorded zoster vaccine, inactivated 04/16/18 Given zoster vaccine, inactivated 04/10/18 Recorded zoster vaccine, inactivated 01/18/18 Recorded zoster vaccine, inactivated 01/17/18 Given pneumococcal 13-valent vaccine 09/14/19 Recorded pneumococcal 13-valent vaccine 09/13/14 Given tetanus/diphtheria/pertussis, acel(Tdap) 07/06/19 Recorded tetanus/diphtheria/pertussis, acel(Tdap) 07/05/13 Given Influenza Virus Vaccine (oldterm) 02/07/19 Recorde d Influenza Virus Vaccine (oldterm) 6 01/17/09 Given Influenza Virus Vaccine (oldterm) 7 02/21/07 Given Influenza Virus Vaccine (oldterm) 8 02/16/06 Given FluLaval (oldterm) 9 12/21/11 Given FluLaval (oldterm) 10 01/28/10 Given Pneumococcal Vaccine (oldterm) 02/26/09 Given Pneumococcal Vaccine (oldterm) 07/29/05 Given Zoster Vaccine Live 05/22/08 Given tetanus-diphtheria toxoids (Td) 05/02/03 Given 1Result Comment: [01/19/2017] [facility] HIGH DOSE 2Location History: [facility] 3Result Comment: [01/07/2016] HIGH DOSE 4Location History: [facility] 5Admin Note: cornel 6Admin Note: given by irlanda doc by concha 7Admin Note: given in clinic 8Admin Note: GIVEN IN CLINIC [facility]AM 9Admin Note: [facility] 10Admin Note: [facility] VIS [id number] given Medications amLODIPine 10 mg oral tablet 10 mg, 1, tablet, By Mouth, Daily, # 90 tablet, Refills 3, Tot. Refills 3, Maintenance, 01/15/22 8:15:00 EDT, Route to Pharmacy Electronically, [facility], 160.02, cm, :06:00 EDT, Height Start Date: 01/15/22 Status: Ordered aspirin 81 mg oral delayed release tablet 81 mg, 1, tablet, By Mouth, Daily, # 30 tablet, Refills 0, Maintenance, 01/15/22 8:17:00 EDT, Partial fill upon patient request if the prescription is for a schedule II opioid drug. Start Date: 01/15/22 Status: Ordered atorvastatin 80 mg oral tablet 1 tablet = 80 mg, By Mouth, Daily, # 90 tablet, 3 Refills, Maintenance, 01/15/22 8:14:00 EDT, Tablet, [facility], Partial fill upon patient request if the prescription is for aschedule II opioid drug., 160.02, cm, 01/15/22 8:06... Start Date: 01/15/22 Status: Ordered Flonase 50 mcg/inh nasal spray 2 sprays, Nares, Both, Daily, # 16 Gm, 0 Refills, Maintenance, 09/03/15 15:54:14, [place], 2 sprays Nares, Both Daily Start Date: 09/03/15 Status: Ordered hydrochlorothiazide 25 mg oral tablet 25 mg, 1, tablet, By Mouth, Daily, # 90 tablet, Refills 3, Tot. Refills 3, Maintenance, 01/15/22 8:15:00 EDT, Route to Pharmacy Electronically, [facility], 160.02, cm, :06:00 EDT, Height Start Date: 01/15/22 Status: Ordered Lotensin 40 mg oral tablet 1 tablet = 40 mg, By Mouth, Daily, # 90 tablet, 3 Refills, Maintenance, 01/15/22 8:15:00 EDT, Tablet, [facility], 160.02, cm, 01/15/22 8:06:00 EDT, Height Start Date: 01/15/22 Status: Ordered omeprazole 40 mg oral enteric coated capsule 1 capsule = 40 mg, By Mouth, Daily, # 90 capsule, 3 Refills, Maintenance, 01/15/22 8:16:00 EDT, EC Capsule, [facility], Partial fill upon patient request if the prescription isfor a schedule II opioid drug., 160.02, cm, ... Start Date: 01/15/22 Status: Ordered ProAir HFA 90 mcg/inh inhalation aerosol with adapter 2, puffs, Inhalation, Every 6 hours, PRN, # 3 each, Refills 3, Tot. Refills 3, Maintenance, 01/15/22 8:16:00 EDT, Aerosol, Route to Pharmacy Electronically, [id number], [facility], 160.02, cm, 01/15/22... Start Date: 01/15/22 Stop Date: 01/10/23 Status: Ordered Singulair 10 mg oral tablet 10 mg, 1, tablet, By Mouth, Daily, # 90 tablet, Refills 3, Tot. Refills 3, Maintenance, 07/23/22 12:26:00 EDT, Route to Pharmacy Electronically, [facility], Partial fill upon patient request if the prescription is for a schedule... Start Date: 07/23/22 Stop Date: 07/18/23 Status: Ordered triamcinolone 0.1% topical cream 1 application, Topically, 2 times a day, # 80 Gm, 0 Refills, Maintenance, 01/15/22 8:17:00 EDT, Cream, Partial fill upon patient request if the prescription is for a schedule II opioid drug. Start Date: 01/15/22 Status: Ordered Problem List Condition Confirmation Course Effective Dates Status Health Status Informant Allergic rhinitis Confirmed Active [place] Confirmed Active Cerebrovascular disease Confirmed Active Colonoscopy 1, 2 Confirmed Active Decreased appetite Confirmed Active Dupuytren's contracture Confirmed Active Epigastric pain Confirmed Active Esophageal reflux Confirmed Active Glucose intolerance (pre-diabetes) Confirmed 09/20/12 Active H/O: hysterectomy Confirmed Active HTN (hypertension) Confirmed Active Hypercholesterolemia Confirmed Active Menopause Confirmed Active Asthma, mild intermittent Confirmed Active 1colo 2010 nl, repeat 2020 2colo 2000 nl, repeat 2010 Diagnosis Diagnosis Type Effective Dates Health Status Clinical Service Informant Allergic rhinitis Discharge Diagnosis 07/23/22 Asthma, mild intermittent Discharge Diagnosis 07/23/22 Esophageal reflux Discharge Diagnosis 07/23/22 Glucose intolerance (pre-diabetes) Discharge Diagnosis 07/23/22 HTN (hypertension) Discharge Diagnosis 07/23/22 Hypercholesterolemia Discharge Diagnosis 07/23/22 Cerebrovascular disease Discharge Diagnosis 07/23/22 Vital Signs Most recent to oldest [Reference Range]: 1 Height 160.02 cm (07/23/22 7:55 AM) Weight 64.4 kg (07/23/22 7:55 AM) Oxygen Saturation [94-100 %] 98 % (07/23/22 7:55 AM) Pulse Rate [55-90 bpm] 88 bpm (07/23/22 7:55 AM) Body Mass Index [18.5-24.99 kg/m2] 25.15 kg/m2 *H* (07/23/22 7:55 AM) Blood Pressure [90-138/55-84 mm Hg] 110/ 60mm Hg (07/23/22 7:55 AM) Mode of Delivery (Oxygen) Room air (07/23/22 7:55 AM) Blood pressure sites Arm, left (07/23/22 7:55 AM) Weight Obtained Via Standing scale (07/23/22 7:55 AM) Social History Social History Type Response Smoking Status Never smoker entered on: 09/25/15 Sex Female Patient Care team information Care Team Personnel Name: Ryann EASTON, Dale Jett Position: [facility] Primary Care Physician Member Role: PCP Address: Address: [address] [place] [id number]- Care Team Related Persons Name: ANGELA YARBROUGH Address: home [address] [place] [id number]
--- OUTSIDE RECORDS SUMMARY | 2022-09-02 12:19 | XMS_ITS | Continuity of Care Document ---
Author Name Unknown Organization [facility] Yunior Amanuel lt Address [address] [place] [address]- Care Team Providers Care Heavy Equipment Technician Name Role Phone Ryann EASTON, Dale Jett Primary Care Physician [phone] [facility] Date[facility] 07[facility]20 - 08/21/20 [facility] Adult [address] [place] [address]- Allergies, Adverse Reactions, Alerts Substance Reaction Severity Status hydrocodone Active Percocet Active Immunizations Given and Recorded Vaccine Date Status Refusal Reason Influenza Virus Vaccine (oldterm) 02/07/19 Recorde d Influenza Virus Vaccine (oldterm) 1 01/17/09 Given Influenza Virus Vaccine (oldterm) 2 02/21/07 Given Influenza Virus Vaccine (oldterm) 3 02/16/06 Given zoster vaccine, inactivated 04/16/18 Given zoster vaccine, inactivated 01/17/18 Given influenza virus vaccine, inactivated 01/18/18 Taco rded influenza virus vaccine, inactivated 4 01/17/17 Re corded influenza virus vaccine, inactivated 01/02/16 Taco rded influenza virus vaccine, inactivated 5, 6 12/31/15 Recorded influenza virus vaccine, inactivated 7 01/22/15 Re corded influenza virus vaccine, inactivated 01/13/14 Taco rded influenza virus vaccine, inactivated 8 01/11/13 Gi thomas influenza virus vaccine, inactivated 01/19/11 Give n influenza virus vaccine, inactivated 02/22/08 Give n pneumococcal 13-valent vaccine 09/13/14 Given tetanus/diphtheria/pertussis, acel(Tdap) 07/05/13 Given FluLaval (oldterm) 9 12/21/11 Given FluLaval (oldterm) 10 01/28/10 Given Pneumococcal Vaccine (oldterm) 02/26/09 Given Pneumococcal Vaccine (oldterm) 07/29/05 Given Zoster Vaccine Live 05/22/08 Given tetanus-diphtheria toxoids (Td) 05/02/03 Given 1Admin Note: given by irlanda wetzel by concha 2Admin Note: given in clinic 3Admin Note: GIVEN IN CLINIC SHAM 4Result Comment: [01/19/2017] KIARRA LOGAN HIGH DOSE 5Location History: [facility] 6Result Comment: [01/07/2016] HIGH DOSE 7Location History: [facility] 8Admin Note: [facility] 9Admin Note: [facility] [place] 10Admin Note: [address] [employer] VIS [phone] given Medications amLODIPine 10 mg oral tablet 10 mg, 1, tablet, By Mouth, Daily, # 90 tablet, Refills 3, Tot. Refills 3, Maintenance, 12/04/19 11:29:00 EDT, Route to Pharmacy Electronically, [email or web address], 160.02, cm, 12/04/19 11:01:00 EDT, Height, Dry Weight Start Date: 12/04/19 Status: Ordered atorvastatin 40 mg oral tablet 1 tablet = 40 mg, By Mouth, Daily, # 90 tablet, 3 Refills, Maintenance, 12/04/19 11:29:00 EDT, Tablet, [facility], 160.02, cm, 12/04/19 11:01:00 EDT, Height, Dry Weight Start Date: 12/04/19 Status: Ordered Flonase 50 mcg/inh nasal spray 2 sprays, Nares, Both, Daily, # 16 Gm, 0 Refills, Maintenance, 09/03/15 15:54:14, [place], 2 sprays Nares, Both Daily Start Date: 09/03/15 Status: Ordered hydrochlorothiazide 25 mg oral tablet 25 mg, 1, tablet, By Mouth, Daily, # 90 tablet, Refills 3, Tot. Refills 3, Maintenance, 12/04/19 11:29:00 EDT, Route to Pharmacy Electronically, [facility], 160.02, cm, 12/04/19 11:01:00 EDT, Height, Dry Weight Start Date: 12/04/19 Status: Ordered Lotensin 40 mg oral tablet 1 tablet = 40 mg, By Mouth, Daily, # 90 tablet, 3 Refills, Maintenance, 12/04/19 11:29:00 EDT, Tablet, [facility], 160.02, cm, 12/04/19 11:01:00 EDT, Height, Dry Weight Start Date: 12/04/19 Status: Ordered ProAir HFA 90 mcg/inh inhalation aerosol with adapter 2, puffs, Inhalation, Every 6 hours, PRN, # 3 each, Refills 3, Tot. Refills 3, Maintenance, 12/04/19 11:29:00 EDT, Aerosol, Route to Pharmacy Electronically, [id number], [facility], 160.02, cm, 12/04/19 11:01:00 EDT... Start Date: 12/04/19 Stop Date: 11/28/20 Status: Ordered Problem List Condition Effective Dates Status Health Status Inform ant Allergic rhinitis(Confirmed) Active Burping(Confirmed) Active Colonoscopy(Confirmed) 1, 2 Active Decreased appetite(Confirmed) Active Dupuytren's contracture(Confirmed) Active Epigastric pain(Confirmed) Active Glucose intolerance (pre-diabetes)(Confirmed) 09/20/12 Active H/O: hysterectomy(Confirmed) Active HTN (hypertension)(Confirmed) Active Hypercholesterolemia(Confirmed) Active Menopause(Confirmed) Active 1colo 2010 nl, repeat 2020 2colo 2000 nl, repeat 2010 Social History Social History Type Response Smoking Status Never smoker entered on: 09/25/15 Sex Female
--- OUTSIDE RECORDS SUMMARY | 2022-09-02 12:19 | XMS_ITS | Continuity of Care Document ---
Author Name Unknown Organization [facility] Amanuel Address [address] [place] [address]- Care Team Providers Care Flooring Installer Name Role Phone Ryann EASTON, Dale Jett Primary Care Physician [place] [facility] [place] 04/27/19 - 05/04/19 [facility] Adult [address] [place] [address]- [facility] Encounter Diagnosis HTN (hypertension)(Discharge Diagnosis) - 04/27/19 Attending Physician: Chrystal Hurd NP Allergies, Adverse Reactions, Alerts Substance Reaction Severity [...] GIVEN IN CLINIC SHAM 4Result Comment: [01/19/2017] [facility] HIGH DOSE 5Location History: [facility] 6Result Comment: [01/07/2016] HIGH DOSE 7Location History: [facility] 8Admin Note: cornel 9Admin Note: [facility] 10Admin Note: [facility] VIS [phone] given Medications amLODIPine 10 mg oral tablet 10 mg, 1, tablet, By Mouth, Daily, # 90 tablet, Refills 3, Tot. Refills 3, Maintenance, 05/30/18 9:46:33 EST, Route to Pharmacy Electronically, [id number], [facility] Start Date: 05/30/18 Status: Ordered atorvastatin 40 mg oral tablet 1 tablet = 40 mg, By Mouth, Daily, # 90 tablet, 3 Refills, Maintenance, Tablet, Route to Pharmacy Electronically, [id number], [facility] Start Date: 05/30/18 Status: Ordered Flonase 50 mcg/inh nasal spray 2 sprays, Nares, Both, Daily, # 16 Gm, 0 Refills, Maintenance, 09/03/15 15:54:14, [place], 2 sprays Nares, Both Daily Start Date: 09/03/15 Status: Ordered Lotensin 40 mg oral tablet 1 tablet = 40 mg, By Mouth, Daily, # 90 tablet, 3 Refills, Maintenance, 04/27/19 10:33:00 EST, Tablet, [facility], 160.02, cm, 04/27/19 10:11:00 EST, Height, 70, kg, 07/08/17 12:07:00 EST, Dry Weight Start Date: 04/27/19 Status: Ordered Lotensin 40 mg oral tablet 1 tablet = 40 mg, By Mouth, Daily, # 30 tablet, 0 Refills, Maintenance, 04/27/19 10:34:00 EST, Tablet, [id number], 160.02, cm, 04/27/19 10:11:00 EST, Height, 70, kg, 07/08/17 12:07:00 EST, Dry Weight Start Date: 04/27/19 Status: Ordered ProAir HFA 90 mcg/inh inhalation aerosol with adapter 2 puffs, Inhalation, Every 6 hours, PRN for wheezing, # 3 each, 3 Refills, Maintenance, 03/26/15 8:46:51, Aerosol Start Date: 03/26/15 Stop Date: 03/20/16 Status: Ordered Problem List Condition Effective Dates Status Health Status Inform ant Allergic rhinitis(Confirmed) Active Burping(Confirmed) Active Colonoscopy(Confirmed) 1, 2 Active Decreased appetite(Confirmed) Active Epigastric pain(Confirmed) Active Glucose intolerance (pre-diabetes)(Confirmed) 09/20/12 Active H/O: hysterectomy(Confirmed) Active HTN (hypertension)(Confirmed) Active Hypercholesterolemia(Confirmed) Active Menopause(Confirmed) Active 1colo 2010 nl, repeat 2020 2colo 2000 nl, repeat 2010 Diagnosis Diagnosis Type Effective Dates Health Status Cl inical Service Informant HTN (hypertension) Discharge Diagnosis 04/27/19 Vital Signs Most recent to oldest [Reference Range]: 1 Height 160.02 cm (04/27/19 10:11 AM) Weight 68.1 kg (04/27/19 10:11 AM) Oxygen Saturation [94-100 %] 98 % (04/27/19 10:11 AM) Pulse Rate [55-90 bpm] 68 bpm (04/27/19 10:11 AM) Body Mass Index [18.5-24.99] 26.59 *H* (04/27/19 10:11 AM) Blood Pressure [90-138/55-84 mm Hg] 138/ 78mm Hg (04/27/19 10:11 AM) Blood pressure sites Arm, right (04/27/19 10:11 AM) Social History Social History Type Response Smoking Status Never smoker entered on: 09/25/15 Sex Female
--- OUTSIDE RECORDS SUMMARY | 2022-09-02 12:19 | XMS_ITS | Continuity of Care Document ---
Author Name Unknown Organization [facility] Amanuel lt Address [address] [place] [address]- Care Team Providers Care Project Coordinator Name Role Phone Not on Staff, PCP Primary Care Physician Unavail able [facility] Date[facility]s): 12/29/20 - 01/28/21 [facility] Adult [address] [place] [address]- Attending Physician: Admtr, Ar8 Allergies, Adverse Reactions, Alerts Substance Reaction Severity [...] (oldterm) 10 01/28/10 Given Pneumococcal Vaccine (oldterm) 10/28/09 Given Pneumococcal Vaccine (oldterm) 07/29/05 Given Zoster Vaccine Live 05/22/08 Given tetanus-diphtheria toxoids (Td) 05/02/03 Given 1Admin Note: given by irlanda doc by concha 2Admin Note: given in clinic 3Admin Note: GIVEN IN CLINIC SHAM 4Result Comment: [01/19/2017] KIARRA LOGAN HIGH DOSE 5Location History: [facility] 6Result Comment: [01/07/2016] HIGH DOSE 7Location History: [facility] 8[facility] Note: [facility] 9Admin Note: [facility] [place]Admin Note: [facility] VIS [phone] given Medications amLODIPine 10 mg oral tablet 10 mg, 1, tablet, By Mouth, Daily, # 90 tablet, Refills 0, Tot. Refills 0, Maintenance, 11/27/20 7:51:00 EDT, Route to Pharmacy Electronically, [facility], 160.02, cm, 12/04/19 11:01:00 EDT, Height Start Date: 11/27/20 Status: Ordered atorvastatin 40 mg oral tablet 1 tablet, By Mouth, Daily, # 90 tablet, 0 Refills, Maintenance, 11/15/20 16:00:00 EDT, [facility], 160.02, cm, 12/04/19 11:01:00 EDT, Height Start Date: 11/15/20 Status: Ordered Flonase 50 mcg/inh nasal spray 2 sprays, Nares, Both, Daily, # 16 Gm, 0 Refills, Maintenance, 09/03/15 15:54:14, [place], 2 sprays Nares, Both Daily Start Date: 09/03/15 Status: Ordered hydrochlorothiazide 25 mg oral tablet 25 mg, 1, tablet, By Mouth, Daily, # 90 tablet, Refills 1, Tot. Refills 1, Maintenance, 09/10/20 10:31:00 EDT, Route to Pharmacy Electronically, [facility], 160.02, cm, 12/04/19 11:01:00 EDT, Height Start Date: 09/10/20 Status: Ordered Lotensin 40 mg oral tablet [...] 11:29:00 EDT, Aerosol, Route to Pharmacy Electronically, [id number], [facility], 160.02, cm, 12/04/19 11:01:00 [...]
--- OUTSIDE RECORDS SUMMARY | 2022-09-02 12:19 | XMS_ITS | Continuity of Care Document ---
Author Name Unknown Organization [facility] Address [address] [place] [address]- Care Team Providers Care Service Crew Leader Name Role Phone Dale Garzon MD Primary Care Physician Encounter 05/22/20 - 07/10/20 [facility] [place] [address], [address] [place] [address]- Attending Physician: Dale Garzon MD Admitting Physician: Dale Garzon MD Referring Physician: Dale Garzon MD Allergies, Adverse Reactions, [...] [01/19/2017] KIARRA LOGAN [facility]IGH DOSE 5Location History: [facility] 6Result Comment: [01/07/2016] HIGH DOSE 7Location History: [facility] 8Admin Note: cornel 9Admin Note: [facility] 10Admin Note: [facility] VIS [id number] given Medications amLODIPine 10 mg oral tablet 10 mg, 1, tablet, By Mouth, Daily, # 90 tablet, Refills 3, Tot. Refills 3, Maintenance, 12/04/19 11:29:00 EDT, Route to Pharmacy Electronically, [facility], 160.02, cm, 12/04/19 11:01:00 EDT, [...] 16 Gm, 0 Refills, Maintenance, 09/03/15 15:54:14, [place], 2 sprays Nares, Both Daily Start Date: 09/03/15 Status: Ordered hydrochlorothiazide 25 mg oral tablet 25 mg, 1, tablet, By Mouth, Daily, # 90 tablet, Refills 3, Tot. Refills 3, Maintenance, 12/04/19 11:29:00 EDT, Route to Pharmacy Electronically, [facility], 160.02, cm, 12/04/19 11:01:00 EDT, [...] 11:29:00 EDT, Aerosol, Route to Pharmacy Electronically, [id number], [facility], 160.02, cm, 12/04/19 11:01:00 [...]
--- OUTSIDE RECORDS SUMMARY | 2022-09-02 12:19 | XMS_ITS | Continuity of Care Document ---
Author Name Unknown Organization [facility] Amanuel Address [address] [place] [address]- Care Team Providers Care Equine Intern Name Role Phone Dale Garzon MD Primary Care Physician [phone] [facility] Date[facility]s): 10/29/19 - 11/28/19 [facility] Adult [address] [place] [address]- [facility] Allergies, Adverse Reactions, Alerts Substance Reaction Severity [...] R[facility] BIMAL LOGAN HIGH DOSE 5Location History: [facility] 6Result Comment: [01/07/2016] HIGH DOSE 7Location History: [facility] 8Admin Note: [facility] 9Admin Note: [facility] 10Admin Note: [facility] [place] [place]IS [phone] given Medications amLODIPine 10 mg oral tablet 10 mg, 1, tablet, By Mouth, Daily, # 90 tablet, Refills 1, Tot. Refills 1, Maintenance, 10/29/19 8:40:00 EDT, Route to Pharmacy Electronically, [facility], 160.02, cm, 06/01/19 8:41:00 EST,Height, Dry Weight Start Date: 10/29/19 Status: Ordered atorvastatin 40 mg oral tablet 1 tablet = 40 mg, By Mouth, Daily, # 90 tablet, 1 Refills, Maintenance, 08/13/19 14:20:00 EDT, Tablet, [facility], 160.02, cm, 06/01/19 8:41:00 EST, Height, Dry Weight Start Date: 08/13/19 Status: Ordered Flonase 50 mcg/inh nasal spray 2 sprays, Nares, Both, Daily, # 16 Gm, 0 Refills, Maintenance, 09/03/15 15:54:14, [place], 2 sprays Nares, Both Daily Start Date: 09/03/15 Status: Ordered hydrochlorothiazide 25 mg oral tablet 25 mg, 1, tablet, By Mouth, Daily, # 90 tablet, Refills 3, Tot. Refills 3, Maintenance, 11/06/19 11:09:00 EDT, Route to Pharmacy Electronically, [facility], 160.02, cm, 06/01/19 8:41:00 EST, Height, Dry Weight Start Date: 11/06/19 Status: Ordered Lotensin 40 mg oral tablet 1 tablet = 40 mg, By Mouth, Daily, # 90 tablet, 1 Refills, Maintenance, 08/13/19 14:20:00 EDT, Tablet, [facility], 160.02, cm, 06/01/19 8:41:00 EST, Height, Dry Weight Start Date: 08/13/19 Status: Ordered ProAir HFA 90 mcg/inh inhalation [...]
--- OUTSIDE RECORDS SUMMARY | 2022-09-02 12:19 | XMS_ITS | Continuity of Care Document ---
Author Name Unknown Organization [facility] Address [address] [place] [address]- Care Team Providers Care Customer Counter Associate Name Role Phone Drew Soliman MD Primary Care Physician [phone] [place] [facility] [place]s): 03/30/21 - 04/06/21 [facility] [address] [place] [address]- Attending Physician: Josiah Larkin MD Admitting Physician: Josiah Larkin MD Referring Physician: Josiah Larkin MD Allergies, Adverse Reactions, Alerts Substance Reaction [...] HIGH DOSE 7Location History: [facility] 8Admin Note: [facility] 9Admin Note: [facility] 10Admin Note: [facility] VIS [phone] given Medications amLODIPine 10 mg oral tablet 10 mg, 1, tablet, By Mouth, Daily, # 90 tablet, Refills 0, Tot. Refills 0, Maintenance, 11/27/20 7:51:00 EDT, Route to Pharmacy Electronically, [facility], 160.02, cm, 12/04/19 11:01:00 EDT, Height Start Date: 11/27/20 Status: Ordered atorvastatin 40 mg oral tablet 1 tablet, By Mouth, Daily, # 90 tablet, 0 Refills, Maintenance, 11/15/20 16:00:00 EDT, [facility], 160.02, cm, 12/04/19 11:01:00 EDT, Height Start Date: 11/15/20 Status: Ordered Flonase 50 mcg/inh nasal spray 2 sprays, Nares, Both, Daily, # 16 Gm, 0 Refills, Maintenance, 09/03/15 15:54:14, [place], 2 sprays Nares, Both Daily Start Date: 09/03/15 Status: Ordered hydrochlorothiazide 25 mg oral tablet 25 mg, 1, tablet, By Mouth, Daily, # 90 tablet, Refills 1, Tot. Refills 1, Maintenance, 09/10/20 10:31:00 EDT, Route to Pharmacy Electronically, [facility], 160.02, cm, 12/04/19 11:01:00 EDT, [...] 11:29:00 EDT, Aerosol, Route to Pharmacy Electronically, [id number], [facility], 160.02, cm, 12/04/19 11:01:00 [...] 1colo 2010 nl, repeat 2020 2colo 2000 , repeat 2010 Vital Signs Most recent to oldest [Reference Range]: 1 Height 160.02 cm (03/30/21 8:57 AM) Weight 67.0 kg (03/30/21 8:57 AM) Pulse Rate [55-90 bpm] 90 bpm (03/30/21 8:57 AM) Body Mass Index [18.5-24.99] 26.17 *H* (03/30/21 8:57 AM) Blood Pressure [90-138/55-84 mm Hg] 108/ 68mm Hg (03/30/21 8:57 AM) Blood pressure sites Leg, left (03/30/21 8:57 AM) Weight Obtained Via Patient/family state d (03/30/21 8:57 AM) Social History Social History Type Response Smoking Status Never smoker entered on: 09/25/15 Sex Female
--- OUTSIDE RECORDS SUMMARY | 2022-09-02 12:19 | XMS_ITS | Continuity of Care Document ---
Author Name Unknown Organization [facility] Yunior Amanuel lt Address [address] [place] [address]- Care Team Providers Care Service Center Appraiser Name Role Phone Dale Garzon MD Primary Care Physician [phone] [place] [facility] [place](s): 04/02/20 - 07/31/20 [facility] Adult [address] [place] [address]- Attending Physician: Dale Garzon MD Allergies, Adverse [...] History: [facility] 9Admin Note: [facility] [place]Admin Note: [facility] VIS [phone] given Medications amLODIPine 10 mg oral tablet 10 mg, 1, tablet, By Mouth, Daily, # 90 tablet, Refills 3, Tot. Refills 3, Maintenance, 12/04/19 11:29:00 EDT, Route to Pharmacy Electronically, [facility], 160.02, cm, 12/04/19 11:01:00 [...] 16 Gm, 0 Refills, Maintenance, 09/03/15 15:54:14, [place], 2 sprays Nares, Both Daily Start Date: 09/03/15 Status: Ordered hydrochlorothiazide 25 mg oral tablet 25 mg, 1, tablet, By Mouth, Daily, # 90 tablet, Refills 3, Tot. Refills 3, Maintenance, 12/04/19 11:29:00 EDT, Route to Pharmacy Electronically, [facility], 160.02, cm, 12/04/19 11:01:00 [...] 11:29:00 EDT, Aerosol, Route to Pharmacy Electronically, [id number], [facility], 160.02, cm, 12/04/19 11:01:00 [...]
--- OUTSIDE RECORDS SUMMARY | 2022-09-02 12:19 | XMS_ITS | Continuity of Care Document ---
Author Name Unknown Organization [facility] Yunior Amanuel Address [address] [place] [address]- Care Team Providers Care Marine Electrician Apprentice Name Role Phone Dale Garzon MD Primary Care Physician [facility] 01[facility]03[facility]20 - 02/02/20 [facility] Adult [address] [place] [address]- [facility] Allergies, Adverse Reactions, Alerts Substance Reaction Severity [...] CLINIC SHAM 4Result Comment: [01/19/2017] [facility] HIGH DOSE 5Location History: [facility] 6Result Comment: [01/07/2016] HIGH DOSE 7Location History: [facility] 8Admin Note: [facility] 9Admin Note: [facility] 10Admin Note: [facility] VIS [phone] given Medications amLODIPine 10 mg oral tablet 10 mg, 1, tablet, By Mouth, Daily, # 90 tablet, Refills 3, Tot. Refills 3, Maintenance, 12/04/19 11:29:00 EDT, Route to Pharmacy Electronically, [facility], 160.02, cm, 12/04/19 11:01:00 EDT, [...] 16 Gm, 0 Refills, Maintenance, 09/03/15 15:54:14, [place], 2 sprays Nares, Both Daily Start Date: 09/03/15 Status: Ordered hydrochlorothiazide 25 mg oral tablet 25 mg, 1, tablet, By Mouth, Daily, # 90 tablet, Refills 3, Tot. Refills 3, Maintenance, 12/04/19 11:29:00 EDT, Route to Pharmacy Electronically, [facility], 160.02, cm, 12/04/19 11:01:00 EDT, [...] 11:29:00 EDT, Aerosol, Route to Pharmacy Electronically, [id number], [facility], 160.02, cm, 12/04/19 11:01:00 [...]
--- OUTSIDE RECORDS SUMMARY | 2022-09-02 12:19 | XMS_ITS | Continuity of Care Document ---
Author Name Unknown Organization [facility] Yunior Amanuel Address [address] [place] [address]- Care Team Providers Care Band Instrument Maker Name Role Phone Ryann EASTON, Dale Jett Primary Care Physician [place] [facility] [place]/19 - 06/08/19 [facility] Adult [address] [place] [address]- [facility] Encounter Diagnosis HTN (hypertension)(Discharge Diagnosis) - 06/01/19 Hypercholesterolemia(Discharge Diagnosis) - 06/01/19 Attending Physician: Dale Garzon MD Allergies, Adverse [...] IN CLINIC SHAM 4Result Comment: [01/19/2017] [facility] HIGH DOSE 5Location History: [facility] 6Result Comment: [01/07/2016] HIGH DOSE 7Location History: [facility] 8Admin Note: cornel 9Admin Note: [facility] [facility] 10Admin Note: [employer] [facility] VIS [phone] given Medications amLODIPine 10 mg oral tablet 10 mg, 1, tablet, By Mouth, Daily, # 90 tablet, Refills 1, Tot. Refills 1, Maintenance, 06/08/19 11:42:00 EST, Route to Pharmacy Electronically, [email or web address], 160.02, cm, 06/01/19 8:41:00 EST, Height, 70, kg, 07/08/17 12:07:00 EST, Dry Weight Start Date: 06/08/19 Status: Ordered atorvastatin 40 mg oral tablet 1 tablet = 40 mg, By Mouth, Daily, # 90 tablet, 1 Refills, Maintenance, 05/16/19 21:15:00 EST, Tablet, [facility], 160.02, cm, 04/27/19 10:11:00 EST, Height, 70, kg, 07/08/17 12:07:00 EST, Dry Weight Start Date: 05/16/19 Status: Ordered Flonase 50 mcg/inh nasal spray 2 sprays, Nares, Both, Daily, # 16 Gm, 0 Refills, Maintenance, 09/03/15 15:54:14, [place], 2 sprays Nares, Both Daily Start Date: 09/03/15 Status: Ordered hydrochlorothiazide 25 mg oral tablet 25 mg, 1, tablet, By Mouth, Daily, # 90 tablet, Refills 3, Tot. Refills 3, Maintenance, 06/01/19 9:13:00 EST, Route to Pharmacy Electronically, [email or web address], 160.02, cm, 06/01/19 8:41:00 EST,Height, 70, kg, 07/08/17 12:07:00 EST, Dry Weight Start Date: 06/01/19 Status: Ordered Lotensin 40 mg oral tablet 1 tablet = 40 mg, By Mouth, Daily, # 30 tablet, 0 Refills, Maintenance, 04/27/19 10:34:00 EST, Tablet, [id number], 160.02, cm, 04/27/19 10:11:00 EST, Height, 70, [...] repeat 2020 2colo 2000 , repeat 2010 Diagnosis Diagnosis Type Effective Dates Health Status Clinical Service Informant HTN (hypertension) Discharge Diagnosis 06/01/19 Hypercholesterolemia Discharge Diagnosis 06/01/19 Vital Signs Most recent to oldest [Reference Range]: 1 Height 160.02 cm (06/01/19 8:41 AM) Weight 66.2 kg (06/01/19 8:41 AM) Oxygen Saturation [94-100 %] 96 % (06/01/19 8:41 AM) Pulse Rate [55-90 bpm] 78 bpm (06/01/19 8:41 AM) Body Mass Index [18.5-24.99] 25.85 *H* (06/01/19 8:41 AM) Blood Pressure [90-138/55-84 mm Hg] 144/ 70mm Hg *H* (06/01/19 8:41 AM) Respiratory Rate [16-30 br/min] 12 br/mi n *L* (06/01/19 8:41 AM) Mode of Delivery (Oxygen) Room air (06/01/19 8:41 AM) Blood pressure sites Arm, left (06/01/19 8:41 AM) Weight Obtained Via Standing scale (06/01/19 8:41 AM) Social History Social History Type Response Smoking Status Never smoker entered on: 09/25/15 Sex Female
--- OUTSIDE RECORDS SUMMARY | 2022-09-02 12:19 | XMS_ITS | Continuity of Care Document ---
Author Name Unknown Organization [facility] ter Address [address] [place] [address]- Care Team Providers Care Shop Estimator Name Role Phone Dale Garzon MD Primary Care Physician [facility] Date(s): 04/24/19 - 04/24/[address] [address]- [facility] Attending Physician: Dale Garzon MD Allergies, Adverse [...] [01/19/2017] KIARRA LOGAN HIGH DOSE 5Location History: [facility]ANDY[facility] 6Result Comment: [01/07/2016] HIGH DOSE 7Location History: [facility] 8Admin Note: [facility] 9Admin Note: [facility] 10Admin Note: [facility] VIS [phone] given Medications amLODIPine 10 mg oral tablet 10 mg, 1, tablet, By Mouth, Daily, # 90 tablet, Refills 3, Tot. Refills 3, Maintenance, 05/30/18 9:46:33 EST, Route to Pharmacy Electronically, [id number], [facility] Start Date: 05/30/18 Status: Ordered aspirin 81 mg oral enteric coated capsule 1 capsule = 81 mg, By Mouth, Daily, # 120 capsule, 0 Refills, Maintenance, EC Capsule Start Date: 09/03/11 Status: Ordered atorvastatin 40 mg oral tablet 1 tablet = 40 mg, By Mouth, Daily, # 90 tablet, 3 Refills, Maintenance, Tablet, Route to Pharmacy Electronically, [id number], [facility] Start Date: 05/30/18 Status: Ordered Flonase 50 mcg/inh nasal spray 2 sprays, Nares, Both, Daily, # 16 Gm, 0 Refills, Maintenance, 09/03/15 15:54:14, [place], 2 sprays Nares, Both Daily Start Date: 09/03/15 Status: Ordered Lotensin 40 mg oral tablet 1 tablet = 40 mg, By Mouth, Daily, # 90 tablet, 3 Refills, Maintenance, 05/30/18 9:47:09 EST, Tablet Start Date: 05/30/18 Status: Ordered omeprazole 20 mg oral delayed release tablet 1 tablet = 20 mg, By Mouth, Daily, PRN reflux, # 30 tablet, 2 Refills, Maintenance, 11/29/18 9:45:42 EDT, EC Tablet Start Date: 11/29/18 Status: Ordered ProAir HFA 90 mcg/inh inhalation [...]
--- OUTSIDE RECORDS SUMMARY | 2022-09-02 12:19 | XMS_ITS | Continuity of Care Document ---
Author Name Unknown Organization [facility] Address [address] [facility], [facility] [address] [place] [address]- Care Team Providers Care Brake Machine Operator Name Role Phone Masoud Nelson MD Primary Care Physician Encounter 01/03/20 - 01/10/20 [facility] [address], [facility] [address] [place] [address]- [phone] Attending Physician: Masoud Nelson MD Admitting Physician: Masoud Nelson MD Referring Physician: Masoud Nelson MD Allergies, Adverse Reactions, Alerts Substance Reaction [...] History: [facility] 8Admin Note: [facility] 9Admin Note: [employer] [place] 10Admin Note: [employer] VIS [phone] given Medications amLODIPine 10 mg oral tablet 10 mg, 1, tablet, By Mouth, Daily, # 90 tablet, Refills 3, Tot. Refills 3, Maintenance, 12/04/19 11:29:00 EDT, Route to Pharmacy Electronically, [facility], 160.02, cm, 12/04/19 11:01:00 EDT, [...] 16 Gm, 0 Refills, Maintenance, 09/03/15 15:54:14, [place], 2 sprays Nares, Both Daily Start Date: 09/03/15 Status: Ordered hydrochlorothiazide 25 mg oral tablet 25 mg, 1, tablet, By Mouth, Daily, # 90 tablet, Refills 3, Tot. Refills 3, Maintenance, 12/04/19 11:29:00 EDT, Route to Pharmacy Electronically, [facility], 160.02, cm, 12/04/19 11:01:00 EDT, [...] 11:29:00 EDT, Aerosol, Route to Pharmacy Electronically, [id number], [facility], 160.02, cm, 12/04/19 11:01:00 [...] repeat 2020 2colo 2000 nl, repeat 2010 Results Radiology Reports * Exam Date Time Procedure Performing Provider Status 01/03/20 8:58 AM Dexa Bone Density (Axial) Obdulio Bernabe (Verified) Notes: (Dexa Bone Density (Axial)) Reason For Exam: Osteopenia RESULT: DEXA BONE DENSITY (AXIAL) Bone Density Report Name: EDDIE VELASQUEZ Age: 74 Sex: Female Ethnicity: White Date of : 1945 Indication: POSTMENOPAUSAL. Referring Provider: MASOUD NELSON MD Study: Bone densitometry was performed. Exam Date: January 03, 2020 Accession number: [id number] Bone Density: Region BMD T-score Z-score Classification AP Spine (L1-L4) 0.915 -1.2 1.2 Osteopenia Femoral Neck (Right) 0.639 -1.9 0.2 Osteopenia Total Hip (Right) 0.825 -1.0 0.9 Normal World Health Organization criteria for BMD impression classify patients as: Normal (T-score at or above -1.0), Osteopenia (T-score between -1.0 and -2.5), or Osteoporosis (T-score at or below -2.5). 10-year Fracture Risk(1): Major Osteoporotic Fracture 13% Hip Fracture 3.1% Reported Risk Factors: [place] (), Neck BMD=0.639, BMI=26.9 (1) FRAX(R) Version 3.00. Fracture probability calculated for an untreated patient. Fracture probability may be lower if the patient has received treatment. Clinical Information Provided by Patient: Has the following medical conditions: Asthma or Emphysema, Hysterectomy Patient maximum height was No Menopause Age: 44 Onset of menses at age 10 Number of children 2 Impression: The patient has osteopenia as determined by WHO criteria. Reported by: Ricardo Guaman M.D. on 01/03/2020 10:27:00 AM. Dictated By: Ricardo Guaman MD Dictated Date/Time: 01/03/20 10:28 a Reviewed By: Ricardo Guaman MD Signed By: Ricardo Guaman MD Signed Date/Time: 01/03/20 10:28 am Transcribed By: MARK Transcribed Date/Time: 01/03/20 10:28 am Social History Social History Type Response Smoking Status Never smoker entered on: 09/25/15 Sex Female
--- OUTSIDE RECORDS SUMMARY | 2022-09-02 12:20 | XMS_ITS | Continuity of Care Document ---
Author Name Unknown Organization [facility]unior Amanuel lt Address [address] [place] [address]- Care Team Providers Care Border Patrol Officer Name Role Phone Ryann EASTON, Dale Jett Primary Care Physician [facility] 01/05/22 - 02/04/22 [facility] [place] Adult [address] [place] [address]- Allergies, Adverse Reactions, Alerts Substance Reaction Severity Status hydrocodone Active Percocet Active Immunizations Given and Recorded Vaccine Date Status Refusal Reason influenza virus vaccine, inactivated 12/28/21 Taco [employer] [...] vaccine, inactivated 02/22/08 Give n SARS-CoV-2 mRNA ([id number]-[id number]-[id number]) vax 08/11/21 Recorded pneumococcal 23-valent vaccine 02/26/21 [...] toxoids (Td) 05/02/03 Given 1Result Comment: [01/19/2017] KIARRA LOGAN HIGH DOSE 2Location History: [facility] 3Result Comment: [01/07/2016] HIGH DOSE 4Location History: [facility] 5Admin Note: cornel 6Admin Note: given by irlanda doc by concha 7Admin Note: given in clinic 8Admin Note: GIVEN IN CLINIC SHAM 9Admin Note: [employer] 10Admin Note: [employer] VIS [id number] given Medications amLODIPine 10 mg oral tablet 10 mg, 1, tablet, By Mouth, Daily, # 90 tablet, Refills 3, Tot. Refills 3, Maintenance, 01/15/22 8:15:00 EDT, Route to Pharmacy Electronically, [facility], 160.02, cm, :06:00 EDT, [...] 3 Refills, Maintenance, 01/15/22 8:14:00 EDT, Tablet, [facility], Partial fill upon patient request if the prescription is for aschedule II opioid drug., 160.02, cm, 01/15/22 8:06... Start Date: 01/15/22 Status: Ordered Flonase 50 mcg/inh nasal spray 2 sprays, Nares, Both, Daily, # 16 Gm, 0 Refills, Maintenance, 09/03/15 15:54:14, [place], 2 sprays Nares, Both Daily Start Date: 09/03/15 Status: Ordered hydrochlorothiazide 25 mg oral tablet 25 mg, 1, tablet, By Mouth, Daily, # 90 tablet, Refills 3, Tot. Refills 3, Maintenance, 01/15/22 8:15:00 EDT, Route to Pharmacy Electronically, [facility], 160.02, cm, :06:00 EDT, Height Start Date: 01/15/22 Status: Ordered Lotensin 40 mg oral tablet 1 tablet = 40 mg, By Mouth, Daily, # 90 tablet, 3 Refills, Maintenance, 01/15/22 8:15:00 EDT, Tablet, [facility], 160.02, cm, 01/15/22 8:06:00 EDT, Height Start Date: 01/15/22 Status: Ordered omeprazole 40 mg oral enteric coated capsule 1 capsule = 40 mg, By Mouth, Daily, # 90 capsule, 3 Refills, Maintenance, 01/15/22 8:16:00 EDT, EC Capsule, [facility], Partial fill upon patient request if the prescription isfor a schedule II opioid drug., 160.02, cm, ... Start Date: 01/15/22 Status: Ordered ProAir HFA 90 mcg/inh inhalation aerosol with adapter 2, puffs, Inhalation, Every 6 hours, PRN, # 3 each, Refills 3, Tot. Refills 3, Maintenance, 01/15/22 8:16:00 EDT, Aerosol, Route to Pharmacy Electronically, [id number], [facility], 160.02, cm, 01/15/22... Start Date: 01/15/22 Stop Date: 01/10/23 Status: Ordered triamcinolone 0.1% topical cream 1 [...] 09/25/15 Sex Female Patient Care team information Personnel Name: Ryann EASTON, Dale Jett Address: Address: [address] [place] [id number]
--- OUTSIDE RECORDS SUMMARY | 2022-09-02 12:20 | XMS_ITS | Continuity of Care Document ---
Author Name Unknown Organization [facility] Yunior Amanuel lt Address [address] [place] [address]- Care Team Providers Care Fixture Maker Name Role Phone Ryann EASTON, Dale Jett Primary Care Physician [phone] [facility] Date[facility]s): 07/16/22 - 08/15/22 [facility] Adult [address] [place] [address]- Allergies, Adverse Reactions, Alerts Substance Reaction Severity Status hydrocodone Active Percocet Active Immunizations Given and Recorded Vaccine Date Status Refusal Reason [id number] 12y+ bivalent booster vax 07/23/22 Given influenza [...] vaccine, inactivated 02/22/08 Give n SARS-CoV-2 mRNA (bhfamdy-bfkz-llflg) vax 08/11/21 Recorded pneumococcal 23-valent vaccine 02/26/21 [...] [01/19/2017] KIARRA LOGAN HIGH DOSE 2Location History: [facility] 3Result Comment: [01/07/2016] HIGH DOSE 4Location History: [facility] 5Admin Note: wallindsay 6Admin Note: given by irlanda doc by concha 7Admin Note: given in clinic 8Admin Note: GIVEN IN CLINIC SHAM 9Admin Note: [facility] 10Admin Note: [facility] VIS [id number] given Medications amLODIPine 10 mg oral tablet 10 mg, 1, tablet, By Mouth, Daily, # 90 tablet, Refills 3, Tot. Refills 3, Maintenance, 01/15/22 8:15:00 EDT, Route to Pharmacy Electronically, [facility], 160.02, cm, :06:00 EDT, Height Start [...] 3 Refills, Maintenance, 01/15/22 8:14:00 EDT, Tablet, [facility], Partial fill upon patient request if the prescription is for aschedule II opioid drug., 160.02, cm, 01/15/22 8:06... Start Date: 01/15/22 Status: Ordered Flonase 50 mcg/inh nasal spray 2 sprays, Nares, Both, Daily, # 16 Gm, 0 Refills, Maintenance, 09/03/15 15:54:14, [place], 2 sprays Nares, Both Daily Start Date: 09/03/15 Status: Ordered hydrochlorothiazide 25 mg oral tablet 25 mg, 1, tablet, By Mouth, Daily, # 90 tablet, Refills 3, Tot. Refills 3, Maintenance, 01/15/22 8:15:00 EDT, Route to Pharmacy Electronically, [facility], 160.02, cm, :06:00 EDT, Height Start Date: 01/15/22 Status: Ordered Lotensin 40 mg oral tablet 1 tablet = 40 mg, By Mouth, Daily, # 90 tablet, 3 Refills, Maintenance, 01/15/22 8:15:00 EDT, Tablet, [facility], 160.02, cm, 01/15/22 8:06:00 EDT, Height Start Date: 01/15/22 Status: Ordered omeprazole 40 mg oral enteric coated capsule 1 capsule = 40 mg, By Mouth, Daily, # 90 capsule, 3 Refills, Maintenance, 01/15/22 8:16:00 EDT, EC Capsule, [facility], Partial fill upon patient request if the prescription isfor a schedule II opioid drug., 160.02, cm, ... Start Date: 01/15/22 Status: Ordered ProAir HFA 90 mcg/inh inhalation aerosol with adapter 2, puffs, Inhalation, Every 6 hours, PRN, # 3 each, Refills 3, Tot. Refills 3, Maintenance, 01/15/22 8:16:00 EDT, Aerosol, Route to Pharmacy Electronically, [id number], [facility], 160.02, cm, 01/15/22... Start Date: 01/15/22 Stop Date: 01/10/23 Status: Ordered Singulair 10 mg oral tablet 10 mg, 1, tablet, By Mouth, Daily, # 90 tablet, Refills 3, Tot. Refills 3, Maintenance, 07/23/22 12:26:00 EDT, Route to Pharmacy Electronically, [facility], Partial fill upon patient request if [...] Personnel Name: Ryann EASTON, Dale Jett Position: S Primary Care Physician Member Role: PCP Address: Address: [address] [place] [address]- Care Team Related Persons Name: ANGELA YARBROUGH Address: home [address] [place] [address]
--- OUTSIDE RECORDS SUMMARY | 2022-09-02 12:20 | XMS_ITS | Continuity of Care Document ---
Author Name Unknown Organization [facility] Yunior Amanuel lt Address [address] [place] [address]- Care Team Providers Care Truck Driving Name Role Phone Dale Garzon MD Primary Care Physician Encounter [facility] Date(s): 01/15/22 - 01/22/22 [facility] Adult [address] [place] [address]- Attending Physician: Dale Garzon MD Allergies, Adverse [...] vaccine, inactivated 02/22/08 Give n SARS-CoV-2 mRNA (dvdrewa-ldmw-evpdq) vax 08/11/21 Recorded pneumococcal 23-valent vaccine 02/26/21 [...] Note: GIVEN IN CLINIC SHAM 9Admin Note: [employer] 10Admin Note: [employer] VIS [id number] given Medications amLODIPine 10 mg oral tablet 10 mg, 1, tablet, By Mouth, Daily, # 90 tablet, Refills 3, Tot. Refills 3, Maintenance, 01/15/22 8:15:00 EDT, Route to Pharmacy Electronically, [facility], 160.02, cm, :06:00 EDT, Height Start [...] 3 Refills, Maintenance, 01/15/22 8:14:00 EDT, Tablet, [facility], Partial fill upon patient request if the prescription is for aschedule II opioid drug., 160.02, cm, 01/15/22 8:06... Start Date: 01/15/22 Status: Ordered Flonase 50 mcg/inh nasal spray 2 sprays, Nares, Both, Daily, # 16 Gm, 0 Refills, Maintenance, 09/03/15 15:54:14, [place], 2 sprays Nares, Both Daily Start Date: 09/03/15 Status: Ordered hydrochlorothiazide 25 mg oral tablet 25 mg, 1, tablet, By Mouth, Daily, # 90 tablet, Refills 3, Tot. Refills 3, Maintenance, 01/15/22 8:15:00 EDT, Route to Pharmacy Electronically, [facility], 160.02, cm, :06:00 EDT, Height Start Date: 01/15/22 Status: Ordered Lotensin 40 mg oral tablet 1 tablet = 40 mg, By Mouth, Daily, # 90 tablet, 3 Refills, Maintenance, 01/15/22 8:15:00 EDT, Tablet, [facility], 160.02, cm, 01/15/22 8:06:00 EDT, Height Start Date: 01/15/22 Status: Ordered omeprazole 40 mg oral enteric coated capsule 1 capsule = 40 mg, By Mouth, Daily, # 90 capsule, 3 Refills, Maintenance, 01/15/22 8:16:00 EDT, EC Capsule, [facility], Partial fill upon patient request if the prescription isfor a schedule II opioid drug., 160.02, cm, ... Start Date: 01/15/22 Status: Ordered ProAir HFA 90 mcg/inh inhalation aerosol with adapter 2, puffs, Inhalation, Every 6 hours, PRN, # 3 each, Refills 3, Tot. Refills 3, Maintenance, 01/15/22 8:16:00 EDT, Aerosol, Route to Pharmacy Electronically, [id number], [facility], 160.02, cm, 01/15/22... Start Date: 01/15/22 Stop Date: 01/10/23 Status: Ordered triamcinolone 0.1% topical cream 1 application, Topically, 2 times a day, # 80 Gm, 0 Refills, Maintenance, 01/15/22 8:17:00 EDT, Cream, Partial fill upon patient request if the prescription is for a schedule II opioid drug. Start Date: 01/15/22 Status: Ordered Problem List Condition Effective Dates Status Health Status Inform ant Allergic rhinitis(Confirmed) Active Burping(Confirmed) Active Cerebrovascular disease(Confirmed) Active Colonoscopy(Confirmed) 1, 2 Active Decreased appetite(Confirmed) Active Dupuytren's contracture(Confirmed) Active Epigastric pain(Confirmed) Active Esophageal reflux(Confirmed) Active Glucose intolerance (pre-diabetes)(Confirmed) 09/20/12 Active H/O: hysterectomy(Confirmed) Active HTN (hypertension)(Confirmed) Active Hypercholesterolemia(Confirmed) Active Menopause(Confirmed) Active Asthma, mild intermittent(Confirmed) Active 1colo 2010 nl, repeat 2020 2colo 2000 nl, repeat 2010 Vital Signs Most recent to oldest [Reference Range]: 1 Height 160.02 cm (01/15/22 8:06 AM) Weight 68.2 kg (01/15/22 8:06 AM) Oxygen Saturation [94-100 %] 98 % (01/15/22 8:06 AM) Pulse Rate [55-90 bpm] 110 bpm *H* (01/15/22 8:06 AM) Body Mass Index [18.5-24.99] 26.63 *H* (01/15/22 8:06 AM) Blood Pressure [90-138/55-84 mm Hg] 126/ 62mm Hg (01/15/22 8:06 AM) Mode of Delivery (Oxygen) Room air (01/15/22 8:06 AM) Blood pressure sites Arm, left (01/15/22 8:06 AM) Weight Obtained Via Standing scale (01/15/22 8:06 AM) Social History Social History Type Response Smoking Status Never smoker entered on: 09/25/15 Sex Female Care Team Personnel Name: Ryann EASTON, Dale Jett Address: [address] [place] [address]
--- OUTSIDE RECORDS SUMMARY | 2022-09-02 12:20 | XMS_ITS | Continuity of Care Document ---
Author Name Unknown Organization [facility] Address [address] [facility], [address] [place] [address]- Care Team Providers Care Bag End Sewer Name Role Phone Dale Garzon MD Primary Care Physician Encounter 06/04/19 - 06/11/19 [facility] [address] [facility], [address] [place] [address]- [phone] Attending Physician: Dale Garzon MD Admitting Physician: [...] History: [facility] 8Admin Note: cornel 9Admin Note: [employer] [facility] 10Admin Note: [employer] [facility] VIS [phone] given Medications amLODIPine 10 mg oral tablet 10 mg, 1, tablet, By Mouth, Daily, # 90 tablet, Refills 1, Tot. Refills 1, Maintenance, 06/08/19 11:42:00 EST, Route to Pharmacy Electronically, [email or web address], 160.02, cm, 06/01/19 8:41:00 EST, Height, 70, kg, 07/08/17 12:07:00 EST, Dry Weight Start Date: 06/08/19 Status: Ordered atorvastatin 40 mg oral tablet 1 tablet = 40 mg, By Mouth, Daily, # 90 tablet, 1 Refills, Maintenance, 05/16/19 21:15:00 EST, Tablet, [facility], 160.02, cm, 04/27/19 10:11:00 EST, Height, 70, kg, 07/08/17 12:07:00 EST, Dry Weight Start Date: 05/16/19 Status: Ordered Flonase 50 mcg/inh nasal spray 2 sprays, Nares, Both, Daily, # 16 Gm, 0 Refills, Maintenance, 09/03/15 15:54:14, [place], 2 sprays Nares, Both Daily Start Date: 09/03/15 Status: Ordered hydrochlorothiazide 25 mg oral tablet 25 mg, 1, tablet, By Mouth, Daily, # 90 tablet, Refills 3, Tot. Refills 3, Maintenance, 06/01/19 9:13:00 EST, Route to Pharmacy Electronically, [email or web address], 160.02, cm, 06/01/19 8:41:00 EST,Height, 70, kg, 07/08/17 12:07:00 EST, Dry Weight Start Date: 06/01/19 Status: Ordered Lotensin 40 mg oral tablet 1 tablet = 40 mg, By Mouth, Daily, # 30 tablet, 0 Refills, Maintenance, 04/27/19 10:34:00 EST, Tablet, [id number], 160.02, cm, 04/27/19 10:11:00 EST, Height, 70, [...]
--- OUTSIDE RECORDS SUMMARY | 2022-09-02 12:20 | XMS_ITS | Continuity of Care Document ---
Author Name Unknown Organization [facility] Address [address] [place] [address]- Care Team Providers Care Battery Container Inspector Name Role Phone Ryann EASTON, Dale Jett Primary Care Physician Encounter [facility] Date(s): 12/28/21 - 04/07/22 [facility] [address] [place], [place] [address] Attending Physician: Josiah Larkin MD Admitting Physician: [...] vaccine, inactivated 02/22/08 Give n SARS-CoV-2 mRNA (zkemrnz-turs-caafj) vax 08/11/21 Recorded pneumococcal 23-valent vaccine 02/26/21 [...] Note: GIVEN IN CLINIC SHAM 9Admin Note: [employer] 10Admin Note: [employer] VIS [phone] given Medications amLODIPine 10 mg oral tablet 10 mg, 1, tablet, By Mouth, Daily, # 90 tablet, Refills 3, Tot. Refills 3, Maintenance, 01/15/22 8:15:00 EDT, Route to Pharmacy Electronically, [facility], 160.02, cm, :06:00 EDT, Height [...] Refills, Maintenance, 01/15/22 8:14:00 EDT, Tablet, [facility], Partial fill upon patient request if the prescription is for aschedule II opioid drug., 160.02, cm, 01/15/22 8:06... Start Date: 01/15/22 Status: Ordered Flonase 50 mcg/inh nasal spray 2 sprays, Nares, Both, Daily, # 16 Gm, 0 Refills, Maintenance, 09/03/15 15:54:14, [place] [employer], 2 sprays Nares, Both Daily Start Date: 09/03/15 Status: Ordered hydrochlorothiazide 25 mg oral tablet 25 mg, 1, tablet, By Mouth, Daily, # 90 tablet, Refills 3, Tot. Refills 3, Maintenance, 01/15/22 8:15:00 EDT, Route to Pharmacy Electronically, [facility], 160.02, cm, :06:00 EDT, Height Start Date: 01/15/22 Status: Ordered Lotensin 40 mg oral tablet 1 tablet = 40 mg, By Mouth, Daily, # 90 tablet, 3 Refills, Maintenance, 01/15/22 8:15:00 EDT, Tablet, [facility], 160.02, cm, 01/15/22 8:06:00 EDT, Height Start Date: 01/15/22 Status: Ordered omeprazole 40 mg oral enteric coated capsule 1 capsule = 40 mg, By Mouth, Daily, # 90 capsule, 3 Refills, Maintenance, 01/15/22 8:16:00 EDT, EC Capsule, [facility], Partial fill upon patient request if the prescription isfor a schedule II opioid drug., 160.02, cm, ... Start Date: 01/15/22 Status: Ordered ProAir HFA 90 mcg/inh inhalation aerosol with adapter 2, puffs, Inhalation, Every 6 hours, PRN, # 3 each, Refills 3, Tot. Refills 3, Maintenance, 01/15/22 8:16:00 EDT, Aerosol, Route to Pharmacy Electronically, [id number], [facility], 160.02, cm, 01/15/22... Start Date: [...] Physician Member Role: PCP Address: Address: [address] [place] [address]- Care Team Related Persons Name: ANGELA YARBROUGH Address: home [address] [place] [id number]
--- OUTSIDE RECORDS SUMMARY | 2022-09-02 12:20 | XMS_ITS | Continuity of Care Document ---
Author Name Unknown Organization [facility] Yunior Amnauel lt Address [address] [place] [address]- Care Team Providers Care Cryptologic Linguist Name Role Phone Dale Garzon MD Primary Care Physician Encounter [facility] Date(s): 12/04/19 - 12/11/19 [facility] Adult [address] [place] [address]- [facility] Attending Physician: Dale Garzon MD Allergies, Adverse [...] [01/19/2017] KIARRA LOGAN HIGH DOSE 5Location History: [facility] 6Result Comment: [01/07/2016] HIGH DOSE 7Location History: [facility] 8Admin Note: [facility] 9Admin Note: [facility] 10Admin Note: [facility] VIS [id number] given Medications amLODIPine 10 mg oral tablet 10 mg, 1, tablet, By Mouth, Daily, # 90 tablet, Refills 3, Tot. Refills 3, Maintenance, 12/04/19 11:29:00 EDT, Route to Pharmacy Electronically, [facility], 160.02, cm, 12/04/19 11:01:00 EDT, [...] 16 Gm, 0 Refills, Maintenance, 09/03/15 15:54:14, [place], 2 sprays Nares, Both Daily Start Date: 09/03/15 Status: Ordered hydrochlorothiazide 25 mg oral tablet 25 mg, 1, tablet, By Mouth, Daily, # 90 tablet, Refills 3, Tot. Refills 3, Maintenance, 12/04/19 11:29:00 EDT, Route to Pharmacy Electronically, [email or web address], 160.02, cm, 12/04/19 11:01:00 EDT, [...] 11:29:00 EDT, Aerosol, Route to Pharmacy Electronically, [id number], [facility], 160.02, cm, 12/04/19 11:01:00 [...] oldest [Reference Range]: 1 Height 160.02 cm (12/04/19 11:01 AM) Weight 68.2 kg (12/04/19 11:01 AM) Oxygen Saturation [94-100 %] 98 % (12/04/19 11:01 AM) Pulse Rate [55-90 bpm] 74 bpm (12/04/19 11:01 AM) Body Mass Index [18.5-24.99] 26.63 *H* (12/04/19 11:01 AM) Blood Pressure [90-138/55-84 mm Hg] 112/ 60mm Hg (12/04/19 11:01 AM) Respiratory Rate [16-30 br/min] 14 br/mi n *L* (12/04/19 11:01 AM) Mode of Delivery (Oxygen) Room air (8/4/20 11:01 AM) Blood pressure sites Arm, left (12/04/19 11:01 AM) Weight Obtained Via Standing scale (12/04/19 11:01 AM) Social History Social History Type Response Smoking Status Never smoker entered on: 09/25/15 Sex Female
--- OUTSIDE RECORDS SUMMARY | 2022-09-02 12:20 | XMS_ITS | Continuity of Care Document ---
Author Name Unknown Organization [facility] Address [address] [place] [id number]- Care Team Providers Care Window Air Conditioner Installer Name Role Phone Ryann EASTON, Dale Jett Primary Care Physician [phone] [facility] Date(s): 02/24/22 - 03/26/22 [facility] [address] [place], [place] [address] Attending Physician: Rosa Bautista Admitting Physician: AdmRosa dalton Referring Physician: AdmtrRosa Allergies, Adverse Reactions, Alerts Substance Reaction Severity [...] vaccine, inactivated 02/22/08 Give n SARS-CoV-2 mRNA ([id number]) vax 08/11/21 Recorded pneumococcal 23-valent vaccine 02/26/21 [...] [01/19/2017] KIARRA LOGAN HIGH DOSE 2Location History: [facility] 3Result Comment: [01/07/2016] HIGH DOSE 4Location History: [facility] 5Admin Note: [facility] 6Admin Note: given by irlanda doc by concha 7Admin Note: given in clinic 8Admin Note: GIVEN IN CLINIC [facility] 9Admin Note: [facility] 10Admin Note: [employer] [facility] [place] [id number] given Medications amLODIPine 10 mg oral tablet 10 mg, 1, tablet, By Mouth, Daily, # 90 tablet, Refills 3, Tot. Refills 3, Maintenance, 01/15/22 8:15:00 EDT, Route to Pharmacy Electronically, [facility], 160.02, cm, :06:00 EDT, [...] 3 Refills, Maintenance, 01/15/22 8:14:00 EDT, Tablet, [facility], Partial fill upon patient request if the prescription is for aschedule II opioid drug., 160.02, cm, 01/15/22 8:06... Start Date: 01/15/22 Status: Ordered Flonase 50 mcg/inh nasal spray 2 sprays, Nares, Both, Daily, # 16 Gm, 0 Refills, Maintenance, 09/03/15 15:54:14, [place], 2 sprays Nares, Both Daily Start Date: 09/03/15 Status: Ordered hydrochlorothiazide 25 mg oral tablet 25 mg, 1, tablet, By Mouth, Daily, # 90 tablet, Refills 3, Tot. Refills 3, Maintenance, 01/15/22 8:15:00 EDT, Route to Pharmacy Electronically, [facility], 160.02, cm, :06:00 EDT, Height Start Date: 01/15/22 Status: Ordered Lotensin 40 mg oral tablet 1 tablet = 40 mg, By Mouth, Daily, # 90 tablet, 3 Refills, Maintenance, 01/15/22 8:15:00 EDT, Tablet, [facility], 160.02, cm, 01/15/22 8:06:00 EDT, Height Start Date: 01/15/22 Status: Ordered omeprazole 40 mg oral enteric coated capsule 1 capsule = 40 mg, By Mouth, Daily, # 90 capsule, 3 Refills, Maintenance, 01/15/22 8:16:00 EDT, EC Capsule, [facility], Partial fill upon patient request if the prescription isfor a schedule II opioid drug., 160.02, cm, ... Start Date: 01/15/22 Status: Ordered ProAir HFA 90 mcg/inh inhalation aerosol with adapter 2, puffs, Inhalation, Every 6 hours, PRN, # 3 each, Refills 3, Tot. Refills 3, Maintenance, 01/15/22 8:16:00 EDT, Aerosol, Route to Pharmacy Electronically, [id number], [facility], 160.02, cm, 01/15/22... Start [...] Personnel Name: Ryann EASTON, Dale Jett Position: [facility] Primary Care Physician Member Role: PCP Address: Address: [address] [place] [address]- Care Team Related Persons Name: ANGELA YARBROUGH Address: home [address] [place] [id number]
--- OUTSIDE RECORDS SUMMARY | 2022-09-02 12:20 | XMS_ITS | Continuity of Care Document ---
Author Name Unknown Organization [facility] Address [address] [place] [address]- Care Team Providers Care Precipitator Supervisor Name Role Phone Ryann EASTON, Dale Jett Primary Care Physician Encounter [facility] Date(s): 06/21/19 - 07/26/19 [facility] [address] [place] [address]- [facility] Attending Physician: Dale Garzon MD Admitting Physician: [...] History: [facility] 8Admin Note: [facility] 9Admin Note: [employer] [facility] 10Admin Note: [employer] [facility] VIS [id number] given Medications amLODIPine 10 mg oral tablet 10 mg, 1, tablet, By Mouth, Daily, # 90 tablet, Refills 1, Tot. Refills 1, Maintenance, 06/08/19 11:42:00 EST, Route to Pharmacy Electronically, [facility], 160.02, cm, 06/01/19 8:41:00 EST, Height, 70, kg, 07/08/17 12:07:00 EST, Dry Weight Start Date: 06/08/19 Status: Ordered atorvastatin 40 mg oral tablet 1 tablet = 40 mg, By Mouth, Daily, # 90 tablet, 1 Refills, Maintenance, 05/16/19 21:15:00 EST, Tablet, [facility], 160.02, cm, 04/27/19 10:11:00 EST, Height, 70, kg, 07/08/17 12:07:00 EST, Dry Weight Start Date: 05/16/19 Status: Ordered Flonase 50 mcg/inh nasal spray 2 sprays, Nares, Both, Daily, # 16 Gm, 0 Refills, Maintenance, 09/03/15 15:54:14, [place], 2 sprays Nares, Both Daily Start Date: 09/03/15 Status: Ordered hydrochlorothiazide 25 mg oral tablet 25 mg, 1, tablet, By Mouth, Daily, # 90 tablet, Refills 3, Tot. Refills 3, Maintenance, 06/01/19 9:13:00 EST, Route to Pharmacy Electronically, [facility], 160.02, cm, 06/01/19 8:41:00 EST,Height, 70, kg, 07/08/17 12:07:00 EST, Dry Weight Start Date: 06/01/19 Status: Ordered Lotensin 40 mg oral tablet 1 tablet = 40 mg, By Mouth, Daily, # 30 tablet, 0 Refills, Maintenance, 04/27/19 10:34:00 EST, Tablet, [id number], 160.02, cm, 04/27/19 10:11:00 EST, Height, 70, [...]
[2022-09-02 12:26] LABS: D Dimer High Sensitivity < 150 NG/ML
[2022-09-02 12:33] LABS: Alanine Aminotransferase 16 U/L (0-31); Albumin Level 4.4 g/dL (3.5-5.0); Alkaline Phosphatase 124 U/L (39-117); Anion Gap 14 (12-20); Aspartate Amino Transferase 28 U/L (5-31); Bilirubin Total 0.4 mg/dL (0.0-1.0); Blood Urea Nitrogen 16 mg/dL (9-16); Calcium 9.7 mg/dL (8.4-10.2); Carbon Dioxide 27 mmol/L (22-29); Chloride 104 mmol/L (96-108); Creatinine Clr Calc Pharmacy 48.4; Estimated Glomerular Filt Rate > 60; Glucose Random 107 mg/dL (60-115); Magnesium 2.2 mg/dL (1.6-2.6); Sodium 141 mmol/L (135-145); Total Protein 7.3 g/dL (6.5-8.0)
[2022-09-02 12:38] LABS: B Type Natriuretic Peptide 43 pg/mL (<100)
[2022-09-02 12:48] LABS: Troponin-I High Sensitivity < 2.7 ng/L (<3.5-17.0)
== END 2022-09-02 18:36 | disposition home or self-care (01) ==
PROVIDERS: Physician Assistant; Emergency Provider Student in an Organized Health Care Education/Training Program; PCP Internal Medicine
DX: R55 Syncope and collapse (principal); R06.02 Shortness of breath; I10 Essential (primary) hypertension; E78.5 Hyperlipidemia, unspecified; Z79.02 Long term (current) use of antithrombotics/antiplatelets; Z79.82 Long term (current) use of aspirin; Z79.899 Other long term (current) drug therapy
CPT/HCPCS: 36415; 71045; 80053; 83735; 83880; 84484; 85025; 85379; 93005; 99283